=== PATIENT | male | born 1950 | race Caucasian/White ===

== ENCOUNTER 2018-07-24 18:13 | Inpatient (IN) | payer BC, MEDICARE ==
[2018-07-24] MEDS ORDERED: MORPHINE SULFATE 4 MG/ML SYRINGE IV STA (19:14)
[2018-07-24] MEDS ORDERED: SODIUM CHLORIDE 0.9% 1,000 ML IV STA ×2 (19:14→20:59)
[2018-07-24] MEDS ORDERED: ONDANSETRON 4 MG/2 ML VIAL IVP STA (19:14)
--- NOTE | 2018-07-24 19:23 | ED ---
Abdominal Pain HPI - General Source: patient Mode of arrival: ambulatory Limitations: no limitations <Danii Rivera - Last Filed: 07/24/18 22:34> <Cheryl Mike - Last Filed: 07/25/18 00:13> - General Chief Complaint: Abdominal Pain Stated Complaint: pain upper abd Time Seen by Provider: 07/24/18 18:48 - History of Present Illness Initial Comments: 67-year-old male patient presents to the emergency department today for evaluation of upper abdominal pain and vomiting. Patient states he has had symptoms since this morning. Patient states that he has had decreased appetite over the last month and a half and has lost 45 pounds without trying. Patient states that he has vomited 2-3 times prior to coming in. Patient states upon arrival he did have an episode of diarrhea. Denies any hematochezia or melena. Denies any hematemesis. Patient states he has had heart problems in the past including "4 heart attacks" but denies having any stents. Patient denies any fever or chills with this. Denies any recent travel or sick contacts. Patient denies any recent rash, shortness breath, chest pain, back pain, numbness, tingling, dizziness, weakness, hematuria, dysuria, urinary urgency, urinary frequency, headache, visual changes, or any other complaints. (Danii Rivera) - Related Data Home Medications Medication Instructions Recorded Confirmed Escitalopram [Lexapro] 20 mg PO DAILY 07/24/18 07/24/18 Allergies Allergy/AdvReac Type Severity Reaction Status Date / Time No Known Allergies Allergy Verified 07/24/18 22:44 Review of Systems ROS Other: All systems not noted in ROS Statement are negative. <Danii Rivera - Last Filed: 07/24/18 22:34> ROS Other: All systems not noted in ROS Statement are negative. <Cheryl Mike - Last Filed: 07/25/18 00:13> ROS Statement: Those systems with pertinent positive or pertinent negative responses have been documented in the HPI. 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 Vital signs upon presentation are temperature 98.0F, pulse 77, respirations 18, blood pressure 120/71, pulse ox 99% on room air.) Eye exam: Present: normal appearance, PERRL, EOMI. Absent: scleral icterus, conjunctival injection, periorbital swelling ENT exam: Present: normal exam, normal oropharynx, mucous membranes moist Respiratory exam: Present: normal lung sounds bilaterally. Absent: respiratory distress, wheezes, rales, rhonchi, stridor Cardiovascular Exam: Present: regular rate, normal rhythm, normal heart sounds. Absent: systolic murmur, diastolic murmur, rubs, gallop, clicks GI/Abdominal exam: Present: soft, tenderness (Upper abdominal tenderness), normal bowel sounds. Absent: distended, guarding, rebound, rigid Neurological exam: Present: alert, oriented X3, CN II-XII intact Psychiatric exam: Present: normal affect, normal mood Skin exam: Present: warm, dry, intact, normal color. Absent: rash <Danii Rivera - Last Filed: 07/24/18 22:34> Vital Signs 07/24/18 07/24/18 07/25/18 18:28 21:12 00:01 Temperature 98 F 98 F Pulse Rate 77 75 Pulse Rate [ 71 Left] Respiratory 18 18 Rate Blood Pressure 120/71 168/86 Blood Pressure 176/85 [Left Arm] O2 Sat by Pulse 99 97 97 Oximetry Medical Decision Making - Lab Data Result diagrams: 07/24/18 19:36 07/24/18 19:36 - Radiology Data Radiology results: report reviewed, image reviewed <Danii Rivera - Last Filed: 07/24/18 22:34> - Lab Data Result diagrams: 07/24/18 19:36 07/24/18 19:36 <Cheryl Mike - Last Filed: 07/25/18 00:13> - Medical Decision Making 67-year-old male patient presented to the emergency department today for evaluation of severe upper abdominal pain radiated through to his back. Patient also complained of nausea and vomiting. He has had a 45 pound weight loss over the last month and a half without trying. Physical examination did reveal upper abdominal tenderness. Labs are obtained and did reveal elevated lipase of greater than 20,000, elevated amylase at 1112, patient also had elevated liver enzymes with AST of 690 and a LT at 226. Bilirubin was normal. Lactic acid was elevated at 2.4. The patient also had evidence of acute kidney injury with a BUN of 32 and creatinine of 1.37. INR is 1.2 at this time. Patient symptoms and lab findings are consistent with acute pancreatitis, did perform ultrasound of the right upper quadrant abdomen did show hepatomegaly as well as presence of gallstones. Patient will be admitted to the hospital for further evaluation by gastroenterology. Patient does not have a primary care physician so we will admit to Dr. Coulter who is taking city call today. (Danii Rivera) I was available for consultation in the emergency department. The history and physical exam were done by the midlevel provider. I was consulted for this patient's care. I reviewed the case with the midlevel provider and based on their presentation of the patient, I agree with the assessment, medical decision making and plan of care as documented. (Cheryl Mike) - Lab Data Lab Results 07/24/18 07/24/18 07/24/18 Range/Units 19:36 19:36 19:36 WBC 8.8 (3.8-10.6) k/uL RBC 3.38 L (4.30-5.90) m/uL Hgb 12.2 L (13.0-17.5) gm/dL Hct 37.1 L (39.0-53.0) % MCV 109.9 H (80.0-100.0) fL MCH 36.1 H (25.0-35.0) pg MCHC 32.9 (31.0-37.0) g/dL RDW 15.8 H (11.5-15.5) % Plt Count 216 (150-450) k/uL Neutrophils % 84 % Lymphocytes % 11 % Monocytes % 4 % Eosinophils % 0 % Basophils % 0 % Neutrophils # 7.4 (1.3-7.7) k/uL Lymphocytes # 0.9 L (1.0-4.8) k/uL Monocytes # 0.3 (0-1.0) k/uL Eosinophils # 0.0 (0-0.7) k/uL Basophils # 0.0 (0-0.2) k/uL Macrocytosis Marked PT (9.0-12.0) sec INR (<1.2) APTT (22.0-30.0) sec Sodium 133 L (137-145) mmol/L Potassium 5.0 (3.5-5.1) mmol/L Chloride 99 (98-107) mmol/L Carbon Dioxide 19 L (22-30) mmol/L Anion Gap 15 mmol/L BUN 32 H (9-20) mg/dL Creatinine 1.37 H (0.66-1.25) mg/dL Est GFR (CKD-EPI)AfAm 62 (>60 ml/min/1.73 sqM) Est GFR (CKD-EPI)NonAf 53 (>60 ml/min/1.73 sqM) Glucose 146 H (74-99) mg/dL Lactic Ac Sepsis Rflx Plasma Lactic Acid Moses (0.7-2.0) mmol/L Calcium 9.0 (8.4-10.2) mg/dL Total Bilirubin 1.3 (0.2-1.3) mg/dL AST 690 H (17-59) U/L ALT 226 H (21-72) U/L Alkaline Phosphatase 104 (38-126) U/L Total Creatine Kinase 74 (55-170) U/L CK-MB (CK-2) 1.1 (0.0-2.4) ng/mL CK-MB (CK-2) Rel Index 1.5 Troponin I 0.019 (0.000-0.034) ng/mL Total Protein 7.8 (6.3-8.2) g/dL Albumin 4.2 (3.5-5.0) g/dL Amylase 1112 H* (30-110) U/L Lipase >10648 H (23-300) U/L Urine Color Urine Appearance (Clear) Urine pH (5.0-8.0) Ur Specific [place] (1.001-1.035) Urine Protein (Negative) Urine Glucose (UA) (Negative) Urine Ketones (Negative) Urine Blood (Negative) Urine Nitrite (Negative) Urine Bilirubin (Negative) Urine Urobilinogen (<2.0) mg/dL Ur Leukocyte Esterase (Negative) 07/24/18 07/24/18 07/24/18 Range/Units 19:36 19:36 20:18 WBC (3.8-10.6) k/uL RBC (4.30-5.90) m/uL Hgb (13.0-17.5) gm/dL Hct (39.0-53.0) % MCV (80.0-100.0) fL MCH (25.0-35.0) pg MCHC (31.0-37.0) g/dL RDW (11.5-15.5) % Plt Count (150-450) k/uL Neutrophils % % Lymphocytes % % Monocytes % % Eosinophils % % Basophils % % Neutrophils # (1.3-7.7) k/uL Lymphocytes # (1.0-4.8) k/uL Monocytes # (0-1.0) k/uL Eosinophils # (0-0.7) k/uL Basophils # (0-0.2) k/uL Macrocytosis PT 11.7 (9.0-12.0) sec INR 1.2 H (<1.2) APTT 22.7 (22.0-30.0) sec Sodium (137-145) mmol/L Potassium (3.5-5.1) mmol/L Chloride (98-107) mmol/L Carbon Dioxide (22-30) mmol/L Anion Gap mmol/L BUN (9-20) mg/dL Creatinine (0.66-1.25) mg/dL Est GFR (CKD-EPI)AfAm (>60 ml/min/1.73 sqM) Est GFR (CKD-EPI)NonAf (>60 ml/min/1.73 sqM) Glucose (74-99) mg/dL Lactic Ac Sepsis Rflx Plasma Lactic Acid Moses 2.4 H* (0.7-2.0) mmol/L Calcium (8.4-10.2) mg/dL Total Bilirubin (0.2-1.3) mg/dL AST (17-59) U/L ALT (21-72) U/L Alkaline Phosphatase (38-126) U/L Total Creatine Kinase (55-170) U/L CK-MB (CK-2) (0.0-2.4) ng/mL CK-MB (CK-2) Rel Index Troponin I (0.000-0.034) ng/mL Total Protein (6.3-8.2) g/dL Albumin (3.5-5.0) g/dL Amylase (30-110) U/L Lipase (23-300) U/L Urine Color Yellow Urine Appearance Clear (Clear) Urine pH 5.5 (5.0-8.0) Ur Specific [place] 1.016 (1.001-1.035) Urine Protein Trace H (Negative) Urine Glucose (UA) Negative (Negative) Urine Ketones Negative (Negative) Urine Blood Negative (Negative) Urine Nitrite Negative (Negative) Urine Bilirubin Negative (Negative) Urine Urobilinogen <2.0 (<2.0) mg/dL Ur Leukocyte Esterase Negative (Negative) 07/24/18 Range/Units 20:43 WBC (3.8-10.6) k/uL RBC (4.30-5.90) m/uL Hgb (13.0-17.5) gm/dL Hct (39.0-53.0) % MCV (80.0-100.0) fL MCH (25.0-35.0) pg MCHC (31.0-37.0) g/dL RDW (11.5-15.5) % Plt Count (150-450) k/uL Neutrophils % % Lymphocytes % % Monocytes % % Eosinophils % % Basophils % % Neutrophils # (1.3-7.7) k/uL Lymphocytes # (1.0-4.8) k/uL Monocytes # (0-1.0) k/uL Eosinophils # (0-0.7) k/uL Basophils # (0-0.2) k/uL Macrocytosis PT (9.0-12.0) sec INR (<1.2) APTT (22.0-30.0) sec Sodium (137-145) mmol/L Potassium (3.5-5.1) mmol/L Chloride (98-107) mmol/L Carbon Dioxide (22-30) mmol/L Anion Gap mmol/L BUN (9-20) mg/dL Creatinine (0.66-1.25) mg/dL Est GFR (CKD-EPI)AfAm (>60 ml/min/1.73 sqM) Est GFR (CKD-EPI)NonAf (>60 ml/min/1.73 sqM) Glucose (74-99) mg/dL Lactic Ac Sepsis Rflx Y Plasma Lactic Acid Moses (0.7-2.0) mmol/L Calcium (8.4-10.2) mg/dL Total Bilirubin (0.2-1.3) mg/dL AST (17-59) U/L ALT (21-72) U/L Alkaline Phosphatase (38-126) U/L Total Creatine Kinase (55-170) U/L CK-MB (CK-2) (0.0-2.4) ng/mL CK-MB (CK-2) Rel Index Troponin I (0.000-0.034) ng/mL Total Protein (6.3-8.2) g/dL Albumin (3.5-5.0) g/dL Amylase (30-110) U/L Lipase (23-300) U/L Urine Color Urine Appearance (Clear) Urine pH (5.0-8.0) Ur Specific [place] (1.001-1.035) Urine Protein (Negative) Urine Glucose (UA) (Negative) Urine Ketones (Negative) Urine Blood (Negative) Urine Nitrite (Negative) Urine Bilirubin (Negative) Urine Urobilinogen (<2.0) mg/dL Ur Leukocyte Esterase (Negative) - Radiology Data 2 views of the abdomen are obtained. Report was reviewed in its entirety. There is no pneumoperitoneum. Bowel gas pattern is normal. His noted the stomach is predominantly fluid-filled. No definite acute skeletal soft tissue findings. Impression by Dr. Ranjana Thomas shows negative exam. Ultrasound of the abdomen is obtained. Report is reviewed in its entirety. Impression by Dr. Miller shows gallstones. No dilated ducts. No renal mass or obstruction. Hepatomegaly. (Danii Rivera) Disposition Decision to Admit Reason: Admit from EC Decision Date: 07/24/18 Decision Time: 22:38 <Danii Rivera - Last Filed: 07/24/18 22:34> <Cheryl Mike - Last Filed: 07/25/18 00:13> Clinical Impression: Acute pancreatitis, Transaminitis, Cholelithiasis, Acute kidney injury Disposition: ADMITTED IP TO THIS [facility] Condition: Serious Addendum entered and electronically signed by Danii Rivera, [employer]-BC, AGACNP -BC 07/24/18 23:15: EKG documentation: EKG obtained at 1936 shows normal sinus rhythm with left axis deviation and left bundle branch block. Ventricular rate is 67, OK interval 152, QRS duration 140, QTC 478, QTC 505.
[2018-07-24 20:14] LABS: Appearance,Urine Clear (Clear); Bilirubin,Urine Negative (Negative); Blood,Urine Negative (Negative); Color,Urine Yellow; Glucose,Urine (UA) Negative (Negative); Ketones,Urine Negative (Negative); Leukocyte Esterase,Urine Negative (Negative); Nitrite,Urine Negative (Negative); PH, Urine 5.5 (5.0-8.0); Protein,Urine Trace (Negative); Specific Gravity,Urine 1.016 (1.001-1.035); Urobilinogen,Urine <2.0 mg/dL (<2.0)
[2018-07-24 20:16] LABS: Basophils % (A) 0 %; Eosinophils % (A) 0 %; HCT 37.1 % (39.0-53.0); HGB 12.2 gm/dL (13.0-17.5); Lymphocytes # (A) 0.9 k/uL (1.0-4.8); Lymphocytes % (A) 11 %; MCH 36.1 pg (25.0-35.0); MCHC 32.9 g/dL (31.0-37.0); MCV 109.9 fL (80.0-100.0); Macrocytosis Marked; Mean Platelet Volume 8.1; Monocytes # (A) 0.3 k/uL (0-1.0); Monocytes % (A) 4 %; Neutrophils # (A) 7.4 k/uL (1.3-7.7); Neutrophils % (A) 84 %; Platelet Count 216 k/uL (150-450); RBC 3.38 m/uL (4.30-5.90); RDW 15.8 % (11.5-15.5); WBC 8.8 k/uL (3.8-10.6)
[2018-07-24 20:17] LABS: ALT 226 U/L (21-72); AST 690 U/L (17-59); Albumin 4.2 g/dL (3.5-5.0); Alkaline Phosphatase 104 U/L (38-126); Anion Gap 15 mmol/L; Blood Urea Nitrogen 32 mg/dL (9-20); Carbon Dioxide 19 mmol/L (22-30); Chloride 99 mmol/L (98-107); Glucose 146 mg/dL (74-99); Sodium 133 mmol/L (137-145); Total Bilirubin 1.3 mg/dL (0.2-1.3); Total Protein 7.8 g/dL (6.3-8.2)
--- NOTE | 2018-07-24 20:19 | XR ---
EXAMINATION TYPE: XR KUB 2V DATE OF EXAM: 07/24/2018 COMPARISON: NONE HISTORY: Abdominal pain and vomiting TECHNIQUE: 2 upright views FINDINGS: Visualized lung bases and pleural spaces are negative. No pneumoperitoneum. The bowel gas pattern is normal. It is noted that the stomach is predominantly f luid filled. No definite acute skeletal or soft tissue findings. IMPRESSION: Negative examination.
[2018-07-24 20:33] LABS: Creatine Kinase MB 1.1 ng/mL (0.0-2.4); Troponin I 0.019 ng/mL (0.000-0.034)
[2018-07-24 20:38] LABS: INR 1.2 (<1.2); Partial Thromboplastin Time 22.7 sec (22.0-30.0); Prothrombin Time 11.7 sec (9.0-12.0)
[2018-07-24 20:42] LABS: Amylase 1112 U/L (30-110)
[2018-07-24] MEDS ORDERED: HYDROmorphone 1 MG/ML 1 ML SYRINGE IVP STA (20:59)
[2018-07-24 21:35] LABS: Lipase >20000 U/L (23-300)
[2018-07-24] MEDS ORDERED: diphenhydrAMINE 50 MG/ML 1 ML VIAL IVP STA (22:11)
[2018-07-24] MEDS ORDERED: METOCLOPRAMIDE 5 MG/ML 2 ML VIAL IVP STA (22:11)
--- NOTE | 2018-07-24 22:32 | US ---
EXAMINATION TYPE: US abdomen limited DATE OF EXAM: 07/24/2018 COMPARISON: NONE CLINICAL HISTORY: Pain. Pain and vomiting. EXAM MEASUREMENTS: Liver Length: 22.7 cm Gallbladder Wall: 0.3 cm CBD: 0.6 cm Right Kidney: 9.1 x 4.9 x 4.9 cm Pancreas: echogenic tail obscured by bowel gas. Liver: Increased attenuation hepatomegaly. Gallbladder: Hydropic 13.3cm with echogenic foci seen posterior wall with shadowing non mobile. Evidence for sonographic Massey's sign: No CBD: wnl Right Kidney: Cortical thinning. IMPRESSION: There are gallstones. No dilated ducts. No renal mass or obstruction. Hepatomegaly.
[2018-07-24] MEDS ORDERED: NALOXONE 0.4 MG/ML 1 ML VIAL IV PRN (22:38)
[2018-07-24] MEDS: SODIUM CHLORIDE 0.9% 1,000 ML IV SCH (23:07)
[2018-07-24] MEDS: HYDROmorphone 1 MG/ML 1 ML SYRINGE IVP PRN (23:46)
[2018-07-24] MEDS: ONDANSETRON 4 MG/2 ML VIAL IVP PRN (23:47)
[2018-07-25] MEDS: HYDROmorphone 1 MG/ML 1 ML SYRINGE IVP PRN ×7 (03:44→23:56)
[2018-07-25] MEDS: SODIUM CHLORIDE 0.9% 1,000 ML IV SCH ×2 (05:56→15:12)
[2018-07-25 08:30] LABS: Albumin 3.1 g/dL (3.5-5.0); Calcium 7.1 mg/dL (8.4-10.2); Total Bilirubin 0.8 mg/dL (0.2-1.3); Total Protein 6.1 g/dL (6.3-8.2)
[2018-07-25 08:31] LABS: Anisocytosis Slight; Basophils % (A) 0 %; Eosinophils # (A) 0.1 k/uL (0-0.7); Eosinophils % (A) 1 %; HCT 36.4 % (39.0-53.0); HGB 11.6 gm/dL (13.0-17.5); Lymphocytes # (A) 1.3 k/uL (1.0-4.8); Lymphocytes % (A) 18 %; MCH 36.3 pg (25.0-35.0); MCHC 31.8 g/dL (31.0-37.0); MCV 114.3 fL (80.0-100.0); Macrocytosis Marked; Mean Platelet Volume 7.3; Monocytes # (A) 0.2 k/uL (0-1.0); Monocytes % (A) 3 %; Neutrophils # (A) 5.8 k/uL (1.3-7.7); Neutrophils % (A) 77 %; Platelet Count 196 k/uL (150-450); RBC 3.19 m/uL (4.30-5.90); WBC 7.5 k/uL (3.8-10.6)
[2018-07-25] MEDS ORDERED: NITROGLYCERIN SL TABS 0.4 MG TAB SUBLINGUAL PRN (09:38)
--- NOTE | 2018-07-25 10:53 | P.HPIM ---
History of Present Illness 67-year-old gentleman came in with complaints of severe epigastric abdominal pain radiating to both sides of the abdomen to the back 10/10 in severity now 8/ 10 in severity along with nausea vomiting going on about for 2-3 days. Patient has not been eating since the Monday as she was nauseous since then. Denied any diarrhea. Patient is found to have highly elevated lipase and pancreatitis patient is also found to have gallstones patient does drink about 2 alcoholic drinks a day on most of the days. Patient denied any fever chills. Patient is nauseous today has not been vomiting. Patient lipase is greater than 20,000 yesterday and now around 8000 a some symptoms of abdominal pain and vomiting improved still nauseous as mentioned above. 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 Although patient's previous ejection fraction from 2014 is essentially within normal limits. Review of Systems REVIEW OF SYSTEMS: CONSTITUTIONAL: No fever, no malaise, no fatigue. HEENT: No recent visual problems or hearing problems. Denied any sore throat. CARDIOVASCULAR: No chest pain, orthopnea, PND, no palpitations, no syncope. PULMONARY: No shortness of breath, no cough, no hemoptysis. GASTROINTESTINAL: As mentioned in HPI NEUROLOGICAL: No headaches, no weakness, no numbness. HEMATOLOGICAL: Denies any bleeding or petechiae. GENITOURINARY: Denies any burning micturition, frequency, or urgency. MUSCULOSKELETAL/RHEUMATOLOGICAL: Denies any joint pain, swelling, or any muscle pain. ENDOCRINE: Denies any polyuria or polydipsia. The rest of the 14-point review of systems is negative. 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 History of Any Multi-Drug Resistant Organisms: None Reported Past Surgical History: Heart Catheterization Past Anesthesia/Blood Transfusion Reactions: No Reported Reaction Past Psychological History: Anxiety, Depression Smoking Status: Never smoker Past Alcohol Use History: Occasional Past Drug Use History: None Reported Medications and Allergies Home Medications Medication Instructions Recorded Confirmed Type Escitalopram [Lexapro] 20 mg PO DAILY 07/24/18 07/24/18 History Aspirin [Adult Low Dose Aspirin EC] 81 mg PO DAILY 07/25/18 07/25/18 History Carvedilol [Coreg] 12.5 mg PO BID 07/25/18 07/25/18 History Losartan [Cozaar] 100 mg PO DAILY 07/25/18 07/25/18 History Metoprolol Tartrate [Lopressor] 50 mg PO BID 07/25/18 07/25/18 History Nitroglycerin 0.4 mg SL DIRECTED PRN 07/25/18 07/25/18 History Sertraline HCl [Zoloft] 50 mg PO DAILY 07/25/18 07/25/18 History Simvastatin [Zocor] 20 mg PO HS 07/25/18 07/25/18 History Allergies Allergy/AdvReac Type Severity Reaction Status Date / Time No Known Allergies Allergy Verified 07/24/18 22:44 Physical Exam Vitals: Vital Signs Temp Pulse Pulse Resp BP BP Pulse Ox 07/25/18 05:18 97.8 F 80 18 163/85 96 07/25/18 00:11 97.4 F L 79 18 158/84 95 07/25/18 00:01 98 F 71 176/85 97 07/24/18 21:12 75 18 168/86 97 07/24/18 18:28 98 F 77 18 120/71 99 Intake and Output 07/24/18 07/25/18 07/25/18 22:59 06:59 14:59 Intake Total 1200 Balance 1200 Intake: Intake, IV Titration 1200 Amount Sodium Chloride 0.9% 1, 1200 000 ml @ 150 mls/hr IV . Q6H40M [facility] Rx#:[id number] Other: Voiding Method Toilet Toilet # Voids 1 Weight 77.564 kg PHYSICAL EXAMINATION: GENERAL: The patient is alert and oriented x3, not in any acute distress. Well developed, well nourished. HEENT: Pupils are round and equally reacting to light. EOMI. No scleral icterus. No conjunctival pallor. Normocephalic, atraumatic. No pharyngeal erythema. No thyromegaly. CARDIOVASCULAR: S1 and S2 present. No murmurs, rubs, or gallops. PULMONARY: Chest is clear to auscultation, no wheezing or crackles. ABDOMEN: Patient does have epigastric abdominal tenderness no right upper quadrant tenderness, no rebound or rigidity. MUSCULOSKELETAL: No joint swelling or deformity. EXTREMITIES: No cyanosis, clubbing, or pedal edema. NEUROLOGICAL: Gross neurological examination did not reveal any focal deficits. SKIN: No rashes. Results CBC & Chem 7: 07/25/18 07:42 07/25/18 07:42 Labs: Abnormal Lab Results - Last 24 Hours (Table) 07/24/18 07/24/18 07/24/18 Range/Units 19:36 19:36 19:36 RBC 3.38 L (4.30-5.90) m/uL Hgb 12.2 L (13.0-17.5) gm/dL Hct 37.1 L (39.0-53.0) % MCV 109.9 H (80.0-100.0) fL MCH 36.1 H (25.0-35.0) pg RDW 15.8 H (11.5-15.5) % Lymphocytes # 0.9 L (1.0-4.8) k/uL INR 1.2 H (<1.2) Sodium 133 L (137-145) mmol/L Chloride (98-107) mmol/L Carbon Dioxide 19 L (22-30) mmol/L BUN 32 H (9-20) mg/dL Creatinine 1.37 H (0.66-1.25) mg/dL Glucose 146 H (74-99) mg/dL Plasma Lactic Acid Moses (0.7-2.0) mmol/L Calcium (8.4-10.2) mg/dL AST 690 H (17-59) U/L ALT 226 H (21-72) U/L Total Protein (6.3-8.2) g/dL Albumin (3.5-5.0) g/dL Amylase 1112 H* (30-110) U/L Lipase >06232 H (23-300) U/L Urine Protein (Negative) 07/24/18 07/24/18 07/25/18 Range/Units 19:36 20:18 07:42 RBC 3.19 L (4.30-5.90) m/uL Hgb 11.6 L (13.0-17.5) gm/dL Hct 36.4 L (39.0-53.0) % MCV 114.3 H (80.0-100.0) fL MCH 36.3 H (25.0-35.0) pg RDW 16.0 H (11.5-15.5) % Lymphocytes # (1.0-4.8) k/uL INR (<1.2) Sodium (137-145) mmol/L Chloride (98-107) mmol/L Carbon Dioxide (22-30) mmol/L BUN (9-20) mg/dL Creatinine (0.66-1.25) mg/dL Glucose (74-99) mg/dL Plasma Lactic Acid Moses 2.4 H* (0.7-2.0) mmol/L Calcium (8.4-10.2) mg/dL AST (17-59) U/L ALT (21-72) U/L Total Protein (6.3-8.2) g/dL Albumin (3.5-5.0) g/dL Amylase (30-110) U/L Lipase (23-300) U/L Urine Protein Trace H (Negative) 07/25/18 Range/Units 07:42 RBC (4.30-5.90) m/uL Hgb (13.0-17.5) gm/dL Hct (39.0-53.0) % MCV (80.0-100.0) fL MCH (25.0-35.0) pg RDW (11.5-15.5) % Lymphocytes # (1.0-4.8) k/uL INR (<1.2) Sodium (137-145) mmol/L Chloride 108 H (98-107) mmol/L Carbon Dioxide 19 L (22-30) mmol/L BUN (9-20) mg/dL Creatinine (0.66-1.25) mg/dL Glucose 119 H (74-99) mg/dL Plasma Lactic Acid Moses (0.7-2.0) mmol/L Calcium 7.1 L (8.4-10.2) mg/dL AST 404 H (17-59) U/L ALT 148 H (21-72) U/L Total Protein 6.1 L (6.3-8.2) g/dL Albumin 3.1 L (3.5-5.0) g/dL Amylase (30-110) U/L Lipase 8011 H (23-300) U/L Urine Protein (Negative) Thrombosis Risk Factor Assmnt - Choose All That Apply Each Risk Factor Represents 2 Points: Age 61-74 years Thrombosis Risk Factor Assessment Total Risk Factor Score: 2 Thrombosis Risk Factor Assessment Level: Low Risk Assessment and Plan Plan: -Acute pancreatitis: Patient may have combination of both alcohol and gallstone pancreatitis patient will need a surgical evaluation. Patient will be started on IV fluids. Patient will remain nothing by mouth except for medications. -Acute renal failure: Prerenal azotemia from nausea vomiting patient is on IV fluids which will be continued and kidney function is expected to improve -Hypovolemic hyponatremia expected to improve with IV fluids as mentioned above -Alcohol abuse: Counseling was provided -Elevated MCV: Will obtain B12 levels but that secondary to alcohol abuse. -Lactic acidosis: Secondary to systemic inflammatory response from pancreatitis will not require any antibiotics at this time -History of viral cardiomyopathy, resolved normal ejection fraction in 2014 beta emigdio will be continued will resume on SHIRIN inhibitor when he can tolerate oral diet -Depression- -hypertension
--- NOTE | 2018-07-25 13:25 | P.CONS ---
History of Present Illness - Reason for Consult Consult date: 07/25/18 pancreatitis Requesting physician: Dru Coulter - Chief Complaint abdominal pain - History of Present Illness 67-year-old male admitted with acute midepigastric upper abdominal pain with nausea vomiting. Symptoms started a few days ago but intensified yesterday. He noticed his urine to be slightly darker in nature. Bowel movements appear to be darker in color. He thinks he's had similar attacks in the past but not hospitalized. He does drink wine sometimes daily sometimes 2-3 times a week. Denies fever or chills. Unintentional weight loss more than 40 pounds over the last few months a decreased appetite. Admission hemoglobin 12.2. MCV 109. Platelet 216. White count 8.8. INR 1.2. Total bilirubin 1.3. AST 690. ALT 226. AP 104. Lipase greater than 20,000. Amylase 1112. Today lipase is 8011. Total bilirubin 0.8. AST 404. ALT 148. AP 71. Ultrasound abdomen gallstones no dilated ducts. CBD 0.6 cm. Hepatomegaly liver line 22.7 cm. Review of Systems Constitutional: Denies fever, chills, sweats, weight gain, or loss. HEENT: Negative for migraines, blurred vision or loss, earaches, drainage, tinnitus, oral mucosal lesions, dysphagia, or odynophagia. Cardiac: Negative for chest pain, arrhythmias, or palpitation. Respiratory: Negative for shortness of breath, hemoptysis, cough, or sputum production. Gastrointestinal: See HPI for pertinent findings. Genitourinary: Negative for hematuria, urgency, frequency, polyuria, dysuria, or penile discharge. Musculoskeletal: Negative for muscle aches, swelling, arthritis, and arthralgias. Neurologic: Negative for stroke or TIA. Endocrine: Negative for thyroid problems. Skin: Negative for rash or itching. Psychiatric: Negative history for depression and anxiety 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 History of Any Multi-Drug Resistant Organisms: None Reported Past Surgical History: Heart Catheterization Past Anesthesia/Blood Transfusion Reactions: No Reported Reaction Past Psychological History: Anxiety, Depression Smoking Status: Never smoker Past Alcohol Use History: Occasional Past Drug Use History: None Reported Medications and Allergies Home Medications Medication Instructions Recorded Confirmed Type Escitalopram [Lexapro] 20 mg PO DAILY 07/24/18 07/25/18 History Aspirin [Adult Low Dose Aspirin EC] 81 mg PO DAILY 07/25/18 07/25/18 History Carvedilol [Coreg] 12.5 mg PO BID 07/25/18 07/25/18 History Losartan Potassium 100 mg PO DAILY 07/25/18 07/25/18 History Metoprolol Tartrate [Lopressor] 50 mg PO DIRECTED 07/25/18 History Nitroglycerin 0.4 mg SL Q5M PRN 07/25/18 07/25/18 History Simvastatin [Zocor] 20 mg PO HS 07/25/18 07/25/18 History Allergies Allergy/AdvReac Type Severity Reaction Status Date / Time No Known Allergies Allergy Verified 07/24/18 22:44 Physical Exam Vitals: Vital Signs Temp Pulse Pulse Resp BP BP Pulse Ox 07/25/18 12:26 97.1 F L 93 16 133/81 93 L 07/25/18 05:18 97.8 F 80 18 163/85 96 07/25/18 00:11 97.4 F L 79 18 158/84 95 07/25/18 00:01 98 F 71 176/85 97 07/24/18 21:12 75 18 168/86 97 07/24/18 18:28 98 F 77 18 120/71 99 Intake and Output 07/24/18 07/25/18 07/25/18 22:59 06:59 14:59 Intake Total 1200 Balance 1200 Intake: Intake, IV Titration 1200 Amount Sodium Chloride 0.9% 1, 1200 000 ml @ 150 mls/hr IV . Q6H40M [facility] Rx#:[id number] Other: Voiding Method Toilet Toilet # Voids 1 Weight 77.564 kg General appearance: The patient is alert, oriented, in no acute distress. HET: Head is normocephalic and atraumatic. Pupils are equal and reactive. Oropharynx is clear without lesions. Neck: Supple without lymphadenopathy. Trachea midline. Heart: S1 S2. Regular rate and rhythm. Lungs: No crackles or wheezes are heard. Abdomen: Soft, moderate tenderness midepigastrium, nondistended with bowel sounds. No peritoneal signs. No palpable organomegaly or masses. Extremities: Normal skin color and turgor. No cyanosis, rash, ulceration, clubbing, or edema. Radial and pedal pulses are 2/4 bilaterally. Neurological: No focal deficits. Strength and sensation are grossly intact. Results CBC & Chem 7: 07/26/18 07:44 07/26/18 07:44 Labs: Abnormal Lab Results - Last 24 Hours (Table) 07/24/18 07/24/18 07/24/18 Range/Units 19:36 19:36 19:36 RBC 3.38 L (4.30-5.90) m/uL Hgb 12.2 L (13.0-17.5) gm/dL Hct 37.1 L (39.0-53.0) % MCV 109.9 H (80.0-100.0) fL MCH 36.1 H (25.0-35.0) pg RDW 15.8 H (11.5-15.5) % Lymphocytes # 0.9 L (1.0-4.8) k/uL INR 1.2 H (<1.2) Sodium 133 L (137-145) mmol/L Chloride (98-107) mmol/L Carbon Dioxide 19 L (22-30) mmol/L BUN 32 H (9-20) mg/dL Creatinine 1.37 H (0.66-1.25) mg/dL Glucose 146 H (74-99) mg/dL Plasma Lactic Acid Moses (0.7-2.0) mmol/L Calcium (8.4-10.2) mg/dL AST 690 H (17-59) U/L ALT 226 H (21-72) U/L Total Protein (6.3-8.2) g/dL Albumin (3.5-5.0) g/dL Amylase 1112 H* (30-110) U/L Lipase >10337 H (23-300) U/L Urine Protein (Negative) 07/24/18 07/24/18 07/25/18 Range/Units 19:36 20:18 07:42 RBC 3.19 L (4.30-5.90) m/uL Hgb 11.6 L (13.0-17.5) gm/dL Hct 36.4 L (39.0-53.0) % MCV 114.3 H (80.0-100.0) fL MCH 36.3 H (25.0-35.0) pg RDW 16.0 H (11.5-15.5) % Lymphocytes # (1.0-4.8) k/uL INR (<1.2) Sodium (137-145) mmol/L Chloride (98-107) mmol/L Carbon Dioxide (22-30) mmol/L BUN (9-20) mg/dL Creatinine (0.66-1.25) mg/dL Glucose (74-99) mg/dL Plasma Lactic Acid Moses 2.4 H* (0.7-2.0) mmol/L Calcium (8.4-10.2) mg/dL AST (17-59) U/L ALT (21-72) U/L Total Protein (6.3-8.2) g/dL Albumin (3.5-5.0) g/dL Amylase (30-110) U/L Lipase (23-300) U/L Urine Protein Trace H (Negative) 07/25/18 Range/Units 07:42 RBC (4.30-5.90) m/uL Hgb (13.0-17.5) gm/dL Hct (39.0-53.0) % MCV (80.0-100.0) fL MCH (25.0-35.0) pg RDW (11.5-15.5) % Lymphocytes # (1.0-4.8) k/uL INR (<1.2) Sodium (137-145) mmol/L Chloride 108 H (98-107) mmol/L Carbon Dioxide 19 L (22-30) mmol/L BUN (9-20) mg/dL Creatinine (0.66-1.25) mg/dL Glucose 119 H (74-99) mg/dL Plasma Lactic Acid Moses (0.7-2.0) mmol/L Calcium 7.1 L (8.4-10.2) mg/dL AST 404 H (17-59) U/L ALT 148 H (21-72) U/L Total Protein 6.1 L (6.3-8.2) g/dL Albumin 3.1 L (3.5-5.0) g/dL Amylase (30-110) U/L Lipase 8011 H (23-300) U/L Urine Protein (Negative) US - abdomen: report reviewed (Dr. Peña) Assessment and Plan (1) Acute pancreatitis Narrative/Plan: 67-year-old male admitted with acute upper abdominal pain elevated amylase lipase consistent with acute pancreatitis with transaminitis cholelithiasis per abdominal imaging suggestive of acute biliary pancreatitis. Underlying alcohol hepatitis pancreatitis cannot be entirely excluded. Transaminases improving. Current Visit: Yes Status: Acute Code(s): K85.90 - ACUTE PANCREATITIS WITHOUT NECROSIS OR INFECTION, UNSP SNOMED Code(s): 828683331 (2) Macrocytosis Current Visit: Yes Status: Acute Code(s): D75.89 - OTHER SPECIFIED DISEASES OF BLOOD AND BLOOD-FORMING ORGANS SNOMED Code(s): 803334055 (3) Cholelithiasis Current Visit: Yes Status: Acute Code(s): K80.20 - CALCULUS OF GALLBLADDER W /O CHOLECYSTITIS W/O OBSTRUCTION SNOMED Code(s): 165529977 (4) Transaminitis Current Visit: Yes Status: Acute Code(s): R74.0 - NONSPEC ELEV OF LEVELS OF TRANSAMNS & LACTIC ACID DEHYDRGNSE SNOMED Code(s): 150403070 Plan: 1. No clinical evidence at this time to suggest choledocholithiasis therefore ERCP is not indicated at this time. 2. General surgical consult. Keep nothing by mouth. CMP amylase lipase CBC in a.m. Thank you for this kind referral and the opportunity to participate in the care of your patient. This consultation was discussed with Dr. Peña. The impression and plan of care have been directed as dictated.
--- NOTE | 2018-07-25 15:07 | P.GSCN ---
History of Present Illness Consult date: 07/25/18 Reason for Consult: Right upper abdominal pain History of present illness: 67 year old male present to the emergency room with a chief complaint of developing upper abdominal pain right upper quadrant with a nausea sensation poor appetite. Patient stated over the last several months he has lost 45 pounds unintentionally states that he did stop drinking beer and soda pop. Patient states that his last alcohol drink was on Monday a glass and a half of wine patient stated that the pain was unbearable that he vomited several times before coming into the emergency room there was no blood in the emesis in the emergency room lab findings were consistent for acute pancreatitis. Ultrasound of the right upper quadrant of the abdomen showed hepatomegaly with present of gallstones. Patient was admitted to the attending. Surgical consultation requested. denies any prior episodes of pain in the abdomen when questioning Did note GI service indicate no clinical evidence to suggest cholelithiasis no ERCP indicated at this time. Recommending repeating labs in the morning. Lipase on admission was elevated to 8000. AST 404 ALT 148 Past surgical history heart catheterization with no stent, past medical history anxiety depressive disorder hyperlipidemia hypertension Alcohol patient states occasionally Review of Systems Essentially unremarkable except as mentioned in present illness 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 History of Any Multi-Drug Resistant Organisms: None Reported Past Surgical History: Heart Catheterization Past Anesthesia/Blood Transfusion Reactions: No Reported Reaction Past Psychological History: Anxiety, Depression Smoking Status: Never smoker Past Alcohol Use History: Occasional Past Drug Use History: None Reported Medications and Allergies Home Medications Medication Instructions Recorded Confirmed Type Escitalopram [Lexapro] 20 mg PO DAILY 07/24/18 07/25/18 History Aspirin [Adult Low Dose Aspirin EC] 81 mg PO DAILY 07/25/18 07/25/18 History Carvedilol [Coreg] 12.5 mg PO BID 07/25/18 07/25/18 History Losartan Potassium 100 mg PO DAILY 07/25/18 07/25/18 History Metoprolol Tartrate [Lopressor] 50 mg PO DIRECTED 07/25/18 History Nitroglycerin 0.4 mg SL Q5M PRN 07/25/18 07/25/18 History Simvastatin [Zocor] 20 mg PO HS 07/25/18 07/25/18 History Allergies Allergy/AdvReac Type Severity Reaction Status Date / Time No Known Allergies Allergy Verified 07/24/18 22:44 Surgical - Exam Vital Signs Temp Pulse Resp BP Pulse Ox 98 F 77 18 120/71 99 07/24/18 18:28 07/24/18 18:28 07/24/18 18:28 07/24/18 18:28 07/24/18 18:28 GENERAL APPEARANCE: 67-year-old male patient is alert, oriented, in no acute distress. VITAL SIGNS: Reviewed HEENT: Head is normocephalic and atraumatic. Pupils are equal and reactive. The nares are patent. Oropharynx is clear without lesions. NECK: Supple without lymphadenopathy. Traches midline. HEART: S1, S2. Regular rate and rhythm. Denying chest pain no murmur LUNGS: No crackles or wheezes are heard. On room air no shortness of breath ABDOMEN: Soft, moderate tenderness midepigastric area nondistended with good bowel sounds. No peritoneal signs. No palpable organomegaly or masses. Reports no nausea no vomiting EXTREMITIES: Normal skin color and turgor. No cyanosis, rash, ulceration, clubbing or edema. Radial pedal pulses are 2/4 bilaterally. NEUROLOGICAL: No focal deficits. Strength and sensation are grossly intact. Results - Labs 07/25/18 07:42 07/25/18 07:42 Abnormal Lab Results - Last 24 Hours (Table) 07/24/18 07/24/18 07/24/18 Range/Units 19:36 19:36 19:36 RBC 3.38 L (4.30-5.90) m/uL Hgb 12.2 L (13.0-17.5) gm/dL Hct 37.1 L (39.0-53.0) % MCV 109.9 H (80.0-100.0) fL MCH 36.1 H (25.0-35.0) pg RDW 15.8 H (11.5-15.5) % Lymphocytes # 0.9 L (1.0-4.8) k/uL INR 1.2 H (<1.2) Sodium 133 L (137-145) mmol/L Chloride (98-107) mmol/L Carbon Dioxide 19 L (22-30) mmol/L BUN 32 H (9-20) mg/dL Creatinine 1.37 H (0.66-1.25) mg/dL Glucose 146 H (74-99) mg/dL Plasma Lactic Acid Moses (0.7-2.0) mmol/L Calcium (8.4-10.2) mg/dL AST 690 H (17-59) U/L ALT 226 H (21-72) U/L Total Protein (6.3-8.2) g/dL Albumin (3.5-5.0) g/dL Amylase 1112 H* (30-110) U/L Lipase >36647 H (23-300) U/L Urine Protein (Negative) 07/24/18 07/24/18 07/25/18 Range/Units 19:36 20:18 07:42 RBC 3.19 L (4.30-5.90) m/uL Hgb 11.6 L (13.0-17.5) gm/dL Hct 36.4 L (39.0-53.0) % MCV 114.3 H (80.0-100.0) fL MCH 36.3 H (25.0-35.0) pg RDW 16.0 H (11.5-15.5) % Lymphocytes # (1.0-4.8) k/uL INR (<1.2) Sodium (137-145) mmol/L Chloride (98-107) mmol/L Carbon Dioxide (22-30) mmol/L BUN (9-20) mg/dL Creatinine (0.66-1.25) mg/dL Glucose (74-99) mg/dL Plasma Lactic Acid Moses 2.4 H* (0.7-2.0) mmol/L Calcium (8.4-10.2) mg/dL AST (17-59) U/L ALT (21-72) U/L Total Protein (6.3-8.2) g/dL Albumin (3.5-5.0) g/dL Amylase (30-110) U/L Lipase (23-300) U/L Urine Protein Trace H (Negative) 07/25/18 Range/Units 07:42 RBC (4.30-5.90) m/uL Hgb (13.0-17.5) gm/dL Hct (39.0-53.0) % MCV (80.0-100.0) fL MCH (25.0-35.0) pg RDW (11.5-15.5) % Lymphocytes # (1.0-4.8) k/uL INR (<1.2) Sodium (137-145) mmol/L Chloride 108 H (98-107) mmol/L Carbon Dioxide 19 L (22-30) mmol/L BUN (9-20) mg/dL Creatinine (0.66-1.25) mg/dL Glucose 119 H (74-99) mg/dL Plasma Lactic Acid Moses (0.7-2.0) mmol/L Calcium 7.1 L (8.4-10.2) mg/dL AST 404 H (17-59) U/L ALT 148 H (21-72) U/L Total Protein 6.1 L (6.3-8.2) g/dL Albumin 3.1 L (3.5-5.0) g/dL Amylase (30-110) U/L Lipase 8011 H (23-300) U/L Urine Protein (Negative) Diabetes panel 07/24/18 07/25/18 Range/Units 19:36 07:42 Sodium 133 L 138 (137-145) mmol/L Potassium 5.0 4.0 (3.5-5.1) mmol/L Chloride 99 108 H (98-107) mmol/L Carbon Dioxide 19 L 19 L (22-30) mmol/L BUN 32 H 20 (9-20) mg/dL Creatinine 1.37 H 1.04 (0.66-1.25) mg/dL Glucose 146 H 119 H (74-99) mg/dL Calcium 9.0 7.1 L (8.4-10.2) mg/dL AST 690 H 404 H (17-59) U/L ALT 226 H 148 H (21-72) U/L Alkaline Phosphatase 104 71 (38-126) U/L Total Protein 7.8 6.1 L (6.3-8.2) g/dL Albumin 4.2 3.1 L (3.5-5.0) g/dL Calcium panel 07/24/18 07/25/18 Range/Units 19:36 07:42 Calcium 9.0 7.1 L (8.4-10.2) mg/dL Albumin 4.2 3.1 L (3.5-5.0) g/dL Pituitary panel 07/24/18 07/25/18 Range/Units 19:36 07:42 Sodium 133 L 138 (137-145) mmol/L Potassium 5.0 4.0 (3.5-5.1) mmol/L Chloride 99 108 H (98-107) mmol/L Carbon Dioxide 19 L 19 L (22-30) mmol/L BUN 32 H 20 (9-20) mg/dL Creatinine 1.37 H 1.04 (0.66-1.25) mg/dL Glucose 146 H 119 H (74-99) mg/dL Calcium 9.0 7.1 L (8.4-10.2) mg/dL Adrenal panel 07/24/18 07/25/18 Range/Units 19:36 07:42 Sodium 133 L 138 (137-145) mmol/L Potassium 5.0 4.0 (3.5-5.1) mmol/L Chloride 99 108 H (98-107) mmol/L Carbon Dioxide 19 L 19 L (22-30) mmol/L BUN 32 H 20 (9-20) mg/dL Creatinine 1.37 H 1.04 (0.66-1.25) mg/dL Glucose 146 H 119 H (74-99) mg/dL Calcium 9.0 7.1 L (8.4-10.2) mg/dL Total Bilirubin 1.3 0.8 (0.2-1.3) mg/dL AST 690 H 404 H (17-59) U/L ALT 226 H 148 H (21-72) U/L Alkaline Phosphatase 104 71 (38-126) U/L Total Protein 7.8 6.1 L (6.3-8.2) g/dL Albumin 4.2 3.1 L (3.5-5.0) g/dL Assessment and Plan Assessment: Impression Present on admission upper abdominal pain suspect due to acute pancreatitis Present on admission elevated Transaminitis Ultrasound of the abdomen show cholelithiasis Acute pancreatitis unclear etiology Abdominal imaging suggestive of acute biliary pancreatitis History of alcohol use underlying alcohol hepatitis cannot be entirely excluded macrocytosis Unintentional weight loss Plan Scheduled tomorrow for a lap cholecystectomy per Clear liquid diet nothing by mouth at midnight IV fluid for hydration Pain control Repeat labs in the morning GI recommendations reviewed no clinical evidence to suggest cholelithiasis no ERCP indicated at this time DVT and GI prophylaxis Further surgical recommendations pending will follow with you Surgical consultation note dictated for Dr. barrett The above impression and plan of care have been discussed and directed by signing physician. Nan Rashid nurse practitioner acting as scribe for signing physician.
[2018-07-25] MEDS: CARVEDILOL 12.5 MG TAB PO SCH (16:32)
[2018-07-26] MEDS: SODIUM CHLORIDE 0.9% 1,000 ML IV SCH ×2 (04:41→06:11)
[2018-07-26] MEDS: ASPIRIN 81 MG PO SCH (07:09)
[2018-07-26] MEDS: HYDROmorphone 1 MG/ML 1 ML SYRINGE IVP PRN ×2 (07:13→20:44)
[2018-07-26] MEDS: CARVEDILOL 12.5 MG TAB PO SCH ×2 (08:11→18:01)
[2018-07-26] MEDS: LOSARTAN 50 MG TAB PO SCH (08:12)
[2018-07-26] MEDS: ESCITALOPRAM 20 MG TAB PO SCH (08:13)
[2018-07-26 08:28] LABS: Anisocytosis Slight; HGB 10.1 gm/dL (13.0-17.5); MCHC 31.6 g/dL (31.0-37.0); MCV 117.2 fL (80.0-100.0); Macrocytosis Marked; Mean Platelet Volume 7.3; Platelet Count 139 k/uL (150-450); RBC 2.73 m/uL (4.30-5.90); RDW 16.2 % (11.5-15.5); WBC 9.5 k/uL (3.8-10.6)
[2018-07-26 08:41] LABS: Albumin 2.7 g/dL (3.5-5.0); Calcium 6.5 mg/dL (8.4-10.2); Potassium 4.6 mmol/L (3.5-5.1); Total Bilirubin 0.7 mg/dL (0.2-1.3); Total Protein 5.6 g/dL (6.3-8.2)
[2018-07-26] MEDS ORDERED: SERTRALINE 50 MG TAB PO SCH (09:00)
--- NOTE | 2018-07-26 10:43 | XR ---
EXAMINATION TYPE: XR chest 1V DATE OF EXAM: 07/26/2018 COMPARISON: NONE HISTORY: Shortness of breath TECHNIQUE: Single frontal view of the chest is obtained. FINDINGS: Bilateral subsegmental consolidation and small effusion. No overt failure. Atherosclerotic change aorta. IMPRESSION: Bilateral consolidation and small effusion.
--- NOTE | 2018-07-26 10:56 | P.PN ---
Subjective 67-year-old admitted the secondary to pancreatitis both alcoholic and gallstone pancreatitis and patient will undergo cholecystectomy most probably today. Patient nausea vomiting abdominal pain all improved patient saturations has gone down although clinically patient does not appear to have any CHF, will obtain a chest x-ray hold off on IV fluids for now. Constitutional: Denied any fatigue denied any fever. Cardio vascular: denied any chest pain, palpitations Gastrointestinal denied any nausea vomiting Pulmonary: Denied any shortness of breath cough Neurologic denied any new focal deficits Objective - Vital Signs Vital signs: Vital Signs Temp 98.6 F 07/26/18 05:00 Pulse 103 H 07/26/18 05:00 Resp 16 07/26/18 05:00 BP 121/62 07/26/18 05:00 Pulse Ox 91 L 07/26/18 05:00 Intake & Output 07/25/18 07/26/18 07/26/18 18:59 06:59 18:59 Intake Total 1000 0 Balance 1000 0 Intake: IV 1000 Sodium Chloride 0.9% 1, 1000 000 ml @ 125 mls/hr IV . Q8H [facility] Rx#:[id number] Oral 0 Other: Voiding Method Toilet Toilet Toilet # Voids 2 - Exam PHYSICAL EXAMINATION: GENERAL: The patient is alert and oriented x3, not in any acute distress. Well developed, well nourished. HEENT: Pupils are round and equally reacting to light. EOMI. No scleral icterus. No conjunctival pallor. Normocephalic, atraumatic. No pharyngeal erythema. No thyromegaly. CARDIOVASCULAR: S1 and S2 present. No murmurs, rubs, or gallops. PULMONARY: Chest is clear to auscultation, no wheezing or crackles. ABDOMEN: Abdomen is bit distended but no significant abdominal tenderness today. MUSCULOSKELETAL: No joint swelling or deformity. EXTREMITIES: No cyanosis, clubbing, or pedal edema. NEUROLOGICAL: Gross neurological examination did not reveal any focal deficits. SKIN: No rashes. - Labs CBC & Chem 7: 07/26/18 07:44 07/26/18 07:44 Labs: Abnormal Lab Results - Last 24 Hours (Table) 07/26/18 07/26/18 Range/Units 07:44 07:44 RBC 2.73 L (4.30-5.90) m/uL Hgb 10.1 L (13.0-17.5) gm/dL Hct 32.0 L (39.0-53.0) % MCV 117.2 H (80.0-100.0) fL MCH 37.0 H (25.0-35.0) pg RDW 16.2 H (11.5-15.5) % Plt Count 139 L (150-450) k/uL Chloride 111 H (98-107) mmol/L Creatinine 1.54 H (0.66-1.25) mg/dL Glucose 118 H (74-99) mg/dL Calcium 6.5 L (8.4-10.2) mg/dL AST 194 H (17-59) U/L ALT 99 H (21-72) U/L Total Protein 5.6 L (6.3-8.2) g/dL Albumin 2.7 L (3.5-5.0) g/dL Lipase 1826 H (23-300) U/L Assessment and Plan Plan: -Acute pancreatitis: Patient may have combination of both alcohol and gallstone pancreatitis, patient will undergo cholecystectomy today, can be resumed on diet after surgery for agreeable with surgical services -Acute renal failure: Prerenal azotemia, improved with IV fluids now bit worse we'll repeat the complex metabolic profile tomorrow. -Hypovolemic hyponatremia improved with IV fluids., Holding off on IV fluids today because of his oxygen saturation to 90% and getting a chest x-ray -Alcohol abuse: Counseling was provided -Elevated MCV: B12 levels are pending and secondary to alcohol abuse -Lactic acidosis: Secondary to systemic inflammatory response from pancreatitis will not require any antibiotics at this time except for preoperative antibiotics -History of viral cardiomyopathy, resolved normal ejection fraction in 2014 beta emigdio will be continued will resume on SHIRIN inhibitor when he can tolerate oral diet -Depression- -hypertension
--- NOTE | 2018-07-26 11:17 | P.PN ---
Subjective Progress Note Date: 07/26/18 Principal diagnosis: Acute pancreatitis 67-year-old male admitted with acute pancreatitis; lipase improved 6. Transaminases improving AST 194. ALT 99. Abdominal pain improving. Scheduled for laparoscopic cholecystectomy today. Afebrile. Objective - Vital Signs Vital signs: Vital Signs Temp 98.6 F 07/26/18 05:00 Pulse 103 H 07/26/18 05:00 Resp 16 07/26/18 05:00 BP 121/62 07/26/18 05:00 Pulse Ox 91 L 07/26/18 05:00 Intake & Output 07/25/18 07/26/18 07/26/18 18:59 06:59 18:59 Intake Total 1000 0 Balance 1000 0 Intake: IV 1000 Sodium Chloride 0.9% 1, 1000 000 ml @ 125 mls/hr IV . Q8H [facility] Rx#:[id number] Oral 0 Other: Voiding Method Toilet Toilet Toilet # Voids 2 - Exam General appearance: The patient is alert, oriented, in no acute distress. HET: Head is normocephalic and atraumatic. Pupils are equal and reactive. Oropharynx is clear without lesions. Neck: Supple without lymphadenopathy. Trachea midline. Heart: S1 S2. Regular rate and rhythm. Lungs: No crackles or wheezes are heard. Abdomen: Soft, midepigastric tenderness, nondistended with bowel sounds. No peritoneal signs. No palpable organomegaly or masses. Extremities: Normal skin color and turgor. No cyanosis, rash, ulceration, clubbing, or edema. Radial and pedal pulses are 2/4 bilaterally. Neurological: No focal deficits. Strength and sensation are grossly intact. - Labs CBC & Chem 7: 07/26/18 07:44 07/26/18 07:44 Labs: Abnormal Lab Results - Last 24 Hours (Table) 07/26/18 07/26/18 Range/Units 07:44 07:44 RBC 2.73 L (4.30-5.90) m/uL Hgb 10.1 L (13.0-17.5) gm/dL Hct 32.0 L (39.0-53.0) % MCV 117.2 H (80.0-100.0) fL MCH 37.0 H (25.0-35.0) pg RDW 16.2 H (11.5-15.5) % Plt Count 139 L (150-450) k/uL Chloride 111 H (98-107) mmol/L Creatinine 1.54 H (0.66-1.25) mg/dL Glucose 118 H (74-99) mg/dL Calcium 6.5 L (8.4-10.2) mg/dL AST 194 H (17-59) U/L ALT 99 H (21-72) U/L Total Protein 5.6 L (6.3-8.2) g/dL Albumin 2.7 L (3.5-5.0) g/dL Lipase 1826 H (23-300) U/L Assessment and Plan (1) Acute pancreatitis Narrative/Plan: 67-year-old male admitted with acute upper abdominal pain elevated amylase lipase consistent with acute pancreatitis with transaminitis cholelithiasis per abdominal imaging suggestive of acute biliary pancreatitis. Underlying alcohol hepatitis pancreatitis cannot be entirely excluded. Transaminases improving. Current Visit: Yes Status: Acute Code(s): K85.90 - ACUTE PANCREATITIS WITHOUT NECROSIS OR INFECTION, UNSP SNOMED Code(s): 338584232 (2) Macrocytosis Current Visit: Yes Status: Acute Code(s): D75.89 - OTHER SPECIFIED DISEASES OF BLOOD AND BLOOD-FORMING ORGANS SNOMED Code(s): 956621632 (3) Cholelithiasis Current Visit: Yes Status: Acute Code(s): K80.20 - CALCULUS OF GALLBLADDER W /O CHOLECYSTITIS W/O OBSTRUCTION SNOMED Code(s): 824785583 (4) Transaminitis Current Visit: Yes Status: Acute Code(s): R74.0 - NONSPEC ELEV OF LEVELS OF TRANSAMNS & LACTIC ACID DEHYDRGNSE SNOMED Code(s): 222198772 Plan: 1. Pancreatic enzymes and transverse is improving. Scheduled for or today. Continue with IV hydration supportive measures and GI prophylaxis. Assessment and plan a care discussed with Dr. Peña
[2018-07-26] MEDS ORDERED: IV FLUID CONTINUATION 1,000 ML IV ONE (12:49)
[2018-07-26] MEDS ORDERED: LIDOCAINE 1% 20 ML VIAL (10MG/ML) FOR IV START INTRADERMA ONE (12:49)
--- NOTE | 2018-07-26 13:17 | P.PN ---
Progress Note - Text Progress Note Date: 07/26/18 Patient feels better today. His liver function tests improve. On exam is lesser stable. His abdomen soft. Patient will undergo laparoscopic cholecystectomy today.
[2018-07-26] MEDS ORDERED: HEPARIN SODIUM,PORCINE 5,000 UNIT/ML 1 ML VIAL SQ ONE (13:25)
[2018-07-26] MEDS ORDERED: SODIUM CHLORIDE 0.9% 100 ML with ceFAZolin 2,000 MG IV ONE ×2 (13:47)
[2018-07-26] MEDS ORDERED: BUPIVACAINE-EPI 0.5%-1:200,000 10 ML VIAL SQ ONE (14:08)
--- NOTE | 2018-07-26 14:24 | P.OP ---
Date of Procedure: 07/26/18 Preoperative Diagnosis: Gallstone pancreatitis Postoperative Diagnosis: Gallstone pancreatitis Procedure(s) Performed: Laparoscopic cholecystectomy Anesthesia: GOMEZ Surgeon: Beck Mendoza Estimated Blood Loss (ml): 5 Pathology: other (Gallbladder) Condition: stable Disposition: PACU Description of Procedure: The patient was placed on the operating table. The patient received a general endotracheal tube anesthesia. The patients abdomen was prepped and draped in the usual sterile fashion. Through an infraumbilical stab incision, the fascia of the anterior abdominal wall was grasped with a pair of Kochers and then the Veress needle was placed in the peritoneal cavity. Position of the Veress needle was confirmed with positive drop test. The abdomen was then insufflated. After adequate insufflation, the 10 mm trocar was placed in the peritoneal cavity. Following this the laparoscope was placed in the peritoneal cavity. The patient was placed in the head-up, right side up position and then a 5 mm trocar was placed in the right lateral and right subcostal position under direct visualization. A 8 mm trocar was placed in the epigastric position. The gallbladder was grasped in the fundus and infundibulum. Traction on the gallbladder was placed in the lateral and the cephalad positions. The triangle of Calot was visualized.. The cystic duct was bluntly dissected until the union of the cystic duct and common bile duct was seen. The cystic duct was then divided and sealed with the Harmonic scissors. A PDS Endoloop was then placed throughout the cystic duct stump. The cystic artery divided and sealed with the Harmonic scissors. The gallbladder was then removed from the liver bed using Harmonic scissors. The gallbladder was then extracted through the epigastric port site. Operative field was checked for any bleeding spots and Harmonic scissors was used to coagulate the liver bed. The abdomen was irrigated. The trocars were removed. The skin was closed using interrupted 3-0 Vicryl suture. Dermabond dressing were applied. The patient tolerated the procedure well.
[2018-07-26] MEDS ORDERED: HYDROmorphone 1 MG/ML 1 ML SYRINGE IVP ONE (15:21)
[2018-07-26] MEDS: ONDANSETRON 4 MG/2 ML VIAL IVP PRN (20:43)
[2018-07-26] MEDS ORDERED: BENZOCAINE/MENTHOL LOZENG 1 EACH LOZENGE MUCOUS MEM PRN (22:13)
[2018-07-27] MEDS: HALOPERIDOL LACTATE 5 MG/ML 1 ML VIAL IM PRN (02:08)
[2018-07-27] MEDS: CARVEDILOL 12.5 MG TAB PO SCH ×2 (09:13→17:35)
[2018-07-27] MEDS: ASPIRIN 81 MG PO SCH (09:14)
[2018-07-27] MEDS: ESCITALOPRAM 20 MG TAB PO SCH (09:14)
[2018-07-27] MEDS: LOSARTAN 50 MG TAB PO SCH (09:14)
--- NOTE | 2018-07-27 10:48 | P.PN ---
Subjective Progress Note Date: 07/27/18 Principal diagnosis: Acute pancreatitis 67-year-old male admitted with acute biliary pancreatitis transaminitis possible underlying alcohol pancreatitis hepatitis; confused. Sitter at bedside. Refused labs this morning. He pulled out IV. Status post laparoscopic cholecystectomy yesterday. Afebrile. Objective - Vital Signs Vital signs: Vital Signs Temp 97.1 F L 07/27/18 05:00 Pulse 84 07/27/18 05:00 Resp 16 07/27/18 05:00 BP 121/67 07/27/18 05:00 Pulse Ox 97 07/27/18 05:00 Intake & Output 07/26/18 07/27/18 07/27/18 18:59 06:59 18:59 Intake Total 550 590 Output Total 5 Balance 545 590 Intake: IV 550 Oral 590 Output: Estimated Blood Loss 5 Other: Voiding Method Toilet Toilet Toilet # Voids 2 # Bowel Movements 1 - Exam General appearance: The patient is alert, agitated alert to self only. HET: Head is normocephalic and atraumatic. Pupils are equal and reactive. Oropharynx is clear without lesions. Neck: Supple without lymphadenopathy. Trachea midline. Heart: S1 S2. Regular rate and rhythm. Lungs: No crackles or wheezes are heard. Abdomen: Soft, surgical incisions without erythema or drainage, midepigastric tenderness, nondistended with bowel sounds. No peritoneal signs. No palpable organomegaly or masses. Extremities: Normal skin color and turgor. No cyanosis, rash, ulceration, clubbing, or edema. Radial and pedal pulses are 2/4 bilaterally. Neurological: No focal deficits. Strength and sensation are grossly intact. - Labs CBC & Chem 7: 07/26/18 07:44 07/26/18 07:44 Assessment and Plan (1) Acute pancreatitis Narrative/Plan: 67-year-old male admitted with acute upper abdominal pain elevated amylase lipase consistent with acute pancreatitis with transaminitis cholelithiasis per abdominal imaging suggestive of acute biliary pancreatitis. Underlying alcohol hepatitis pancreatitis cannot be entirely excluded. Transaminases improving. Current Visit: Yes Status: Acute Code(s): K85.90 - ACUTE PANCREATITIS WITHOUT NECROSIS OR INFECTION, UNSP SNOMED Code(s): 404313845 (2) Macrocytosis Current Visit: Yes Status: Acute Code(s): D75.89 - OTHER SPECIFIED DISEASES OF BLOOD AND BLOOD-FORMING ORGANS SNOMED Code(s): 908259576 (3) Cholelithiasis Current Visit: Yes Status: Acute Code(s): K80.20 - CALCULUS OF GALLBLADDER W /O CHOLECYSTITIS W/O OBSTRUCTION SNOMED Code(s): 163634450 (4) Transaminitis Current Visit: Yes Status: Acute Code(s): R74.0 - NONSPEC ELEV OF LEVELS OF TRANSAMNS & LACTIC ACID DEHYDRGNSE SNOMED Code(s): 484367579 (5) S/P laparoscopic cholecystectomy Current Visit: Yes Status: Acute Code(s): Z90.49 - ACQUIRED ABSENCE OF OTHER SPECIFIED PARTS OF DIGESTIVE TRACT SNOMED Code(s): 347682996 (6) Confusion Narrative/Plan: Suspect alcohol withdrawal delirium sitter at bedside Current Visit: Yes Status: Acute Code(s): R41.0 - DISORIENTATION, UNSPECIFIED SNOMED Code(s): 400512743 Plan: 1. Supportive measures. CIWA protocol. 2. Diet per surgery. Assessment and plan a care discussed with Dr. Peña
[2018-07-27] MEDS ORDERED: LORazepam 1 MG TAB PO PRN (12:02)
[2018-07-27] MEDS ORDERED: THIAMINE 100 MG/ML 2 ML VIAL IM STA (12:02)
--- NOTE | 2018-07-27 13:23 | P.PN ---
Subjective Progress Note Date: 07/27/18 67-year-old male seen at the bedside. Currently is a sitter at the bedside for elopement precautions. Patient currently is up ambulatory in the room pleasant and cooperative. Surgical dressing site dry abdomen soft nondistended and states urinating no difficulty in passing gas and tolerating diet no labs pending Postop 26 of July arthroscopic cholecystectomy for gallstone pancreatitis Objective - Vital Signs Vital signs: Vital Signs Temp 97.8 F 07/27/18 12:12 Pulse 78 07/27/18 12:12 Resp 16 07/27/18 12:12 BP 128/76 07/27/18 12:12 Pulse Ox 97 07/27/18 12:12 Intake & Output 07/26/18 07/27/18 07/27/18 18:59 06:59 18:59 Intake Total 550 590 Output Total 5 Balance 545 590 Intake: IV 550 Oral 590 Output: Estimated Blood Loss 5 Other: Voiding Method Toilet Toilet Toilet # Voids 2 # Bowel Movements 1 - Exam Physical exam Pleasant 67-year-old male up walking in the room pleasant cooperative states is anxious to go home sitter at the bedside for elopement precaution Lungs clear on room air no shortness of breath Heart S1-S2 audible regular Abdomen soft nondistended surgical dressing sites dry bowel tones present passing gas no stool no nausea no vomiting Extremities no edema - Labs CBC & Chem 7: 07/26/18 07:44 07/26/18 07:44 Assessment and Plan Assessment: Impression Present on admission upper abdominal pain suspect due to acute pancreatitis Present on admission elevated Transaminitis Ultrasound of the abdomen show cholelithiasis Acute pancreatitis unclear etiology Abdominal imaging suggestive of acute biliary pancreatitis History of alcohol use underlying alcohol hepatitis cannot be entirely excluded macrocytosis Unintentional weight loss New-onset confusion suspect alcohol withdrawal delirium sitter at bedside Plan Continue postop surgical care CIWA protocol in place Regular diet IV fluid for hydration Pain control Repeat labs in the morning DVT and GI prophylaxis From a surgical perspective is felt to be appropriate to be discharged home defer to the timing to the attending The above impression and plan of care have been discussed and directed by signing physician. Nan Rashid nurse practitioner acting as scribe for signing physician.
[2018-07-27] MEDS ORDERED: HYDROcodone/APAP 5-325MG 1 EACH TAB PO PRN (13:28)
--- NOTE | 2018-07-27 13:43 | CDI ---
Last Revision, September 2017 Documentation Clarification Form Date: 07/27/2018 1:26:53 PM From: Asuncion Root RN, CCDS Admit Date: 07/24/2018 10:38:00 PM Patient Name: Adam Belcher Visit Number: [id number] ATTENTION: The Clinical Documentation Specialists (CDI) and [facility] Coding Staff appreciate your assistance in clarifying documentation. Please respond to the clarification below the line at the bottom and electronically sign. The CDI & [facility] Coding staff will review the response and follow-up if needed. Please note: Queries are made part of the Legal Health Record. If you have any questions, please contact the author of this message via ITS. Shira Meadows MD A declining Hgb and Hct have been noted, please provide specificity to accurately reflect your patients severity of condition and clarification is needed. History/Risk Factors: nausea and vomiting x3 days, HTN, gallstone pancreatitis with lap choley Clinical indicators: Hemoglobin: 12.2/11.6/10.1 Hematocrit: 37.1/36.4/32 Treatment: monitoring labs 2L IVF Bolus In order to capture the severity of condition, please clarify the type of anemia and etiology if known: Acute blood loss anemia Acute on chronic blood loss anemia Chronic blood loss anemia Iron deficiency anemia Drug induced anemia Nutritional anemia Anemia of chronicdisease Unable to determine Other, please specify Please continue to document in your progress notes and discharge summary in order to capture severity of illness and risk of mortality. Include clinical findings that support your diagnosis. Unable to determine MTDD
[2018-07-27] MEDS: LORazepam 1 MG TAB PO PRN ×2 (13:53→19:59)
[2018-07-27] MEDS: THIAMINE 100 MG TAB PO SCH (13:53)
--- NOTE | 2018-07-27 16:00 | PN ---
PROGRESS NOTE DATE OF SERVICE: 07/27/2018. INTERVAL HISTORY: This 67-year-old gentleman who was admitted with multiple medical issues, acute pancreatitis, also had possibly gallstone pancreatitis. The patient underwent laparoscopic cholecystectomy yesterday. Last night the patient has some change in mental status and possibly fairly delirium tremens. The patient is confused. Patient will be closely monitored. Patient has renal failure also. Patient also hypovolemic hyponatremia. PAST MEDICAL HISTORY: Reviewed. REVIEW OF SYSTEMS: CARDIOVASCULAR: No angina. RESPIRATORY: As mentioned earlier. GI: As mentioned earlier. : No dysuria. NERVOUS SYSTEM: No numbness or weakness. CURRENT MEDICATIONS: Reviewed and include: 1. [place] 5 mg q.6h p.r.n. 2. Aspirin 81 mg supper. 3. Coreg 25 mg b.i.d. 4. Lexapro 20 mg daily. 5. Haldol 3 mg p.r.n. 6. Ativan 1 mg p.r.n. 7. CIWA protocol. 8. Cozaar 100 mg p.o. daily. 9. Narcan 0.2 q.2h p.r.n. 10.Zofran p.r.n. 11.Vitamin B1 p.r.n. PHYSICAL EXAM: Patient is alert, oriented x2. Pulse 78, blood pressure 128/76, respirations 16, temperature 97.8, pulse ox 97% on room air. HEENT: Conjunctivae normal. Oral mucosa moist. Neck is no jugular venous distention. No carotid bruit. No lymph node enlargement. CARDIOVASCULAR: S1, S2. RESPIRATORY: Breath sounds diminished in the bases. A few scattered rhonchi. No crackles. ABDOMEN: Soft, slightly obese and status post laparoscopic cholecystectomy. Slight postop tenderness. No guarding. No rigidity. No mass palpable. LEGS: No edema. NERVOUS SYSTEM: No focal deficits. LAB STUDIES: WBC 9, hemoglobin is 10.1 and MCV 117.2. Creatinine is 1.54. Lipase is 1826. AST and ALT noted. ASSESSMENT: 1. Acute pancreatitis, possibly gallstone pancreatitis. 2. Status post laparoscopic cholecystectomy. 3. Confusion acute delirium possibly delirium tremens. 4. History of acute renal failure. 5. Hypovolemic hyponatremia. 6. History of EtOH abuse. 7. Elevated MCV. 8. Lactic acidosis. 9. History of viral cardiomyopathy. 10.History of depression. 11.Hypertension. RECOMMENDATIONS AND DISCUSSION: I recommend to continue current management, continue monitoring, and symptomatic treatment. Otherwise, incentive spirometry, DVT prophylaxis. I would also recommend CIWA protocol, supplement vitamins. Social work to consult for the home situation. Guarded prognosis. Further recommendations to follow. MMFARNKIEL / IJN: [id number] /
[2018-07-27] MEDS: HEPARIN SODIUM,PORCINE 5,000 UNIT/ML 1 ML VIAL SQ SCH (20:18)
[2018-07-28] MEDS: HALOPERIDOL LACTATE 5 MG/ML 1 ML VIAL IM PRN ×3 (00:56→20:20)
[2018-07-28] MEDS: LORazepam 1 MG TAB PO PRN ×3 (03:14→17:52)
[2018-07-28] MEDS: PANTOPRAZOLE 40 MG TABLET PO SCH (09:39)
[2018-07-28] MEDS: CARVEDILOL 12.5 MG TAB PO SCH ×2 (09:39→17:48)
[2018-07-28] MEDS: LOSARTAN 50 MG TAB PO SCH (09:39)
[2018-07-28] MEDS: ASPIRIN 81 MG PO SCH (09:39)
[2018-07-28] MEDS: HEPARIN SODIUM,PORCINE 5,000 UNIT/ML 1 ML VIAL SQ SCH ×2 (09:39→20:20)
[2018-07-28] MEDS: ESCITALOPRAM 20 MG TAB PO SCH (09:39)
[2018-07-28 09:57] LABS: Basophils % (A) 0 %; Eosinophils # (A) 0.1 k/uL (0-0.7); Eosinophils % (A) 1 %; HCT 27.3 % (39.0-53.0); HGB 8.8 gm/dL (13.0-17.5); Lymphocytes % (A) 12 %; MCH 36.4 pg (25.0-35.0); MCV 113.7 fL (80.0-100.0); Macrocytosis Marked; Monocytes # (A) 0.6 k/uL (0-1.0); Monocytes % (A) 8 %; Neutrophils # (A) 6.1 k/uL (1.3-7.7); Neutrophils % (A) 78 %; Platelet Count 146 k/uL (150-450); RDW 15.8 % (11.5-15.5); WBC 7.9 k/uL (3.8-10.6)
[2018-07-28 10:10] LABS: Albumin 2.6 g/dL (3.5-5.0); Calcium 7.3 mg/dL (8.4-10.2); Magnesium 1.3 mg/dL (1.6-2.3); Total Bilirubin 0.6 mg/dL (0.2-1.3); Total Protein 5.4 g/dL (6.3-8.2)
--- NOTE | 2018-07-28 10:11 | P.PN ---
Subjective Progress Note Date: 07/28/18 Principal diagnosis: Cholecystitis Patient somewhat confused today. It is thought he is going through alcohol withdrawals currently. Mild abdominal pain. Tolerating diet. Objective - Vital Signs Vital signs: Vital Signs Temp 97.6 F 07/27/18 20:22 Pulse 79 07/27/18 20:22 Resp 17 07/27/18 20:22 BP 117/51 07/27/18 20:22 Pulse Ox 97 07/27/18 20:22 Intake & Output 07/27/18 07/28/18 07/28/18 18:59 06:59 18:59 Intake Total 120 Balance 120 Intake: Oral 120 Other: Voiding Method Toilet Toilet # Voids 3 1 - Exam Abdomen: Soft, nondistended, mild tenderness - Labs CBC & Chem 7: 07/28/18 09:32 07/28/18 09:32 Labs: Abnormal Lab Results - Last 24 Hours (Table) 07/27/18 07/28/18 07/28/18 Range/Units 15:58 09:32 09:32 RBC 2.40 L (4.30-5.90) m/uL Hgb 8.8 L (13.0-17.5) gm/dL Hct 27.3 L (39.0-53.0) % MCV 113.7 H (80.0-100.0) fL MCH 36.4 H (25.0-35.0) pg RDW 15.8 H (11.5-15.5) % Plt Count 146 L (150-450) k/uL Chloride 108 H (98-107) mmol/L BUN 22 H (9-20) mg/dL Calcium 7.3 L (8.4-10.2) mg/dL Magnesium 1.3 L (1.6-2.3) mg/dL AST 139 H (17-59) U/L ALT 73 H (21-72) U/L Total Protein 5.4 L (6.3-8.2) g/dL Albumin 2.6 L (3.5-5.0) g/dL Lipase 339 H (23-300) U/L Assessment and Plan Plan: Continue advancing diet. Increase activity. From a surgical standpoint stable for discharge.
[2018-07-28] MEDS: FOLIC ACID 1 MG TAB PO SCH (13:02)
[2018-07-28] MEDS: THIAMINE 100 MG TAB PO SCH ×2 (13:02→17:48)
[2018-07-28] MEDS: MULTIVITAMINS, THERA 1 EACH TAB PO SCH (13:02)
[2018-07-28] MEDS ORDERED: MAGNESIUM OXIDE 400 MG TAB PO STA (19:27)
[2018-07-28] MEDS: MAGNESIUM SULFATE-D5W PMX 1 GM in DEXTROSE/WATER 1 100ML.BAG IVPB SCH ×2 (19:50→20:16)
--- NOTE | 2018-07-28 20:16 | PN ---
PROGRESS NOTE DATE OF SERVICE: 07/28/2018. INTERVAL HISTORY: This 67-year-old gentleman admitted with acute pancreatitis also which had delirium tremens. The patient has been on Haldol and Ativan overnight. No chest pain. No palpitations. Patient is sedated at this time. EXAM: Pulse 81, blood pressure 138/77, respiration 18, temperature 98.6, pulse ox 97% on room air. HEENT: Oral mucosa moist. NECK: No jugular venous distention. No lymph node enlargement. CARDIOVASCULAR: S1 and S2 muffled. RESPIRATORY: Breath sounds diminished at the bases. Few rhonchi. No crackles. ABDOMEN: Soft, status post surgery. NERVOUS SYSTEM: No focal deficits. LAB STUDIES: WBC 11.7, hemoglobin is 8.2. Sodium 137, potassium 4, magnesium is 1.3. AST and ALT noted. Lipase is 305. ASSESSMENT: 1. Acute pancreatitis, possibly gallstone pancreatitis. 2. Status post laparoscopic cholecystectomy. 3. Confusion, acute delirium tremens. 4. Hypomagnesemia. 5. History of acute renal failure. 6. Hypovolemic hyponatremia. 7. History of EtOH abuse, increased MCV. 8. Lactic acidosis. 9. History of viral cardiomyopathy. 10.History of depression. 11.Hypertension. RECOMMENDATIONS: Recommend to continue current management and treatment. Otherwise at this time, repeat labs. Continue with CIWA protocol. Supplement vitamins. Guarded prognosis because of multiple complex medical issues. Further recommendation per Surgery. See orders for details. MMODL / IJN: [id number] /
[2018-07-29] MEDS: LORazepam 1 MG TAB PO PRN ×3 (03:56→22:07)
[2018-07-29 07:14] LABS: Anisocytosis Slight; Basophils % (A) 0 %; Eosinophils # (A) 0.1 k/uL (0-0.7); Eosinophils % (A) 1 %; HCT 27.4 % (39.0-53.0); HGB 8.8 gm/dL (13.0-17.5); Lymphocytes # (A) 1.3 k/uL (1.0-4.8); Lymphocytes % (A) 13 %; MCH 37.1 pg (25.0-35.0); MCHC 32.3 g/dL (31.0-37.0); Macrocytosis Marked; Mean Platelet Volume 7.4; Monocytes # (A) 0.9 k/uL (0-1.0); Monocytes % (A) 9 %; Neutrophils # (A) 7.2 k/uL (1.3-7.7); Neutrophils % (A) 76 %; Platelet Count 180 k/uL (150-450); RBC 2.38 m/uL (4.30-5.90); RDW 16.2 % (11.5-15.5); WBC 9.5 k/uL (3.8-10.6)
[2018-07-29 07:27] LABS: Albumin 2.5 g/dL (3.5-5.0); Calcium 7.5 mg/dL (8.4-10.2); Potassium 3.8 mmol/L (3.5-5.1); Total Bilirubin 0.5 mg/dL (0.2-1.3); Total Protein 5.1 g/dL (6.3-8.2)
--- NOTE | 2018-07-29 10:34 | P.PN ---
Subjective Progress Note Date: 07/29/18 Principal diagnosis: Cholecystitis Patient denies pain. Tolerating diet. White blood cell count normal. Objective - Vital Signs Vital signs: Vital Signs Temp 98.7 F 07/28/18 21:00 Pulse 91 07/29/18 00:00 Resp 16 07/29/18 00:00 BP 142/73 07/28/18 21:00 Pulse Ox 94 L 07/28/18 21:00 Intake & Output 07/28/18 07/29/18 07/29/18 18:59 06:59 18:59 Intake Total 250 1030 Balance 250 1030 Intake: Oral 250 1030 Other: Voiding Method Toilet Toilet # Voids 2 1 - Exam Abdomen: Soft, nondistended, mild tenderness - Labs CBC & Chem 7: 07/29/18 06:29 07/29/18 06:29 Labs: Abnormal Lab Results - Last 24 Hours (Table) 07/28/18 07/29/18 07/29/18 Range/Units 09:32 06:29 06:29 RBC 2.38 L (4.30-5.90) m/uL Hgb 8.8 L (13.0-17.5) gm/dL Hct 27.4 L (39.0-53.0) % MCV 115.0 H (80.0-100.0) fL MCH 37.1 H (25.0-35.0) pg RDW 16.2 H (11.5-15.5) % Calcium 7.5 L (8.4-10.2) mg/dL AST 103 H (17-59) U/L Total Protein 5.1 L (6.3-8.2) g/dL Albumin 2.5 L (3.5-5.0) g/dL Lipase 305 H (23-300) U/L Assessment and Plan (1) S/P laparoscopic cholecystectomy Narrative/Plan: Continue diet as tolerated. Ambulate. Discharge per medicine. Current Visit: Yes Status: Acute Code(s): Z90.49 - ACQUIRED ABSENCE OF OTHER SPECIFIED PARTS OF DIGESTIVE TRACT SNOMED Code(s): 803407215
[2018-07-29] MEDS: PANTOPRAZOLE 40 MG TABLET PO SCH (11:06)
[2018-07-29] MEDS: FOLIC ACID 1 MG TAB PO SCH (11:06)
[2018-07-29] MEDS: CARVEDILOL 12.5 MG TAB PO SCH ×2 (11:06→17:29)
[2018-07-29] MEDS: LOSARTAN 50 MG TAB PO SCH (11:06)
[2018-07-29] MEDS: ASPIRIN 81 MG PO SCH (11:06)
[2018-07-29] MEDS: THIAMINE 100 MG TAB PO SCH ×2 (11:06→17:29)
[2018-07-29] MEDS: MULTIVITAMINS, THERA 1 EACH TAB PO SCH (11:06)
[2018-07-29] MEDS: ESCITALOPRAM 20 MG TAB PO SCH (11:07)
[2018-07-29] MEDS: HEPARIN SODIUM,PORCINE 5,000 UNIT/ML 1 ML VIAL SQ SCH ×2 (11:07→20:03)
[2018-07-29] MEDS ORDERED: MIDAZOLAM 2 MG/2 ML VIAL ONE (13:45)
[2018-07-29] MEDS ORDERED: ONDANSETRON 4 MG/2 ML VIAL ONE (13:45)
[2018-07-29] MEDS ORDERED: ROCURONIUM BROMIDE 10 MG/ML 10 ML VIAL IV ONE (13:45)
[2018-07-29] MEDS ORDERED: fentaNYL (PF) 50 MCG/ML 2 ML AMP ONE (13:45)
[2018-07-29] MEDS ORDERED: DEXAMETHASONE SOD PHOS (MDV) 100 MG/10 ML VIAL ONE (13:45)
[2018-07-29] MEDS ORDERED: PROPOFOL 10 MG/ML 20 ML VIAL IV ONE (13:45)
[2018-07-29] MEDS ORDERED: LIDOCAINE 1% INJ 10MG/ML (20 ML MDV) ONE (13:45)
[2018-07-29] MEDS ORDERED: NEOSTIGMINE 1 MG/ML 10 ML VIAL ONE (13:45)
[2018-07-29] MEDS ORDERED: GLYCOPYRROLATE 0.2 MG/ML 2 ML VIAL ONE (13:45)
--- NOTE | 2018-07-29 17:12 | XR ---
EXAMINATION TYPE: XR chest 1V portable DATE OF EXAM: 07/29/2018 COMPARISON: 07/26/2019 HISTORY: Heart failure TECHNIQUE: Single frontal view of the chest is obtained. FINDINGS: There is no heart failure nor confluent pneumonic infiltrate. Costophrenic angles are buddy r. Thoracic aorta is atheromatous. Bony thorax is intact. IMPRESSION: No active cardiopulmonary disease. There is improved inspiration compared to last exam.
--- NOTE | 2018-07-29 18:32 | PN ---
PROGRESS NOTE DATE OF SERVICE: 07/29/2018 INTERVAL HISTORY: This 61-year-old gentleman who was admitted with acute pancreatitis had gallstone pancreatitis. Patient had laparoscopic cholecystectomy. Subsequently patient had a full-blown acute delirium tremens. Patient is confused. The patient is sedated with CIWA protocol. At this time, the patient being closely monitored. No chest pain. No palpitations. No shortness of breath. PHYSICAL EXAM: Alert and oriented x2. Pulse 77, blood pressure 113/50, respiratory 22, temperature 97.7, pulse ox 98% on room air. HEENT: Conjunctivae normal. Oral mucosa moist. Neck is no jugular venous distention. No carotid bruit. No lymph node enlargement. Cardiovascular systems: S1, S2. Respirations: Breath sounds diminished in the bases. A few rhonchi. No crackles. ABDOMEN: Soft. Obese. Otherwise status post laparoscopic cholecystectomy. Nervous system: No focal deficits. Mild diffuse weakness. Mild diffuse tremors also present. LABS: At this time, WBC 9.3, hemoglobin is 8.8. LFTs are much improving at this time. Albumin is 2.5. Amylase 66 and lipase is 305, improving. ASSESSMENT: 1. Acute pancreatitis, possibly gallstone pancreatitis. 2. Status post laparoscopic cholecystectomy for cholelithiasis. 3. Confusion. 4. Acute delirium tremens. 5. Hypomagnesemia. 6. History of acute renal failure. 7. Hypovolemic hyponatremia. 8. History of EtOH abuse. 9. Increased MCV. 10.Lactic acidosis. 11.History of cardiomyopathy. 12.Hypertension. 13.History of depression. RECOMMENDATIONS AND DISCUSSION: Recommend to continue current medications, continue symptomatic treatment. Continue CIWA protocol. Continue to supplement vitamins. Increase ambulation. Incentive spirometry. Otherwise, I would also recommend continue with DVT prophylaxis and I would also recommend a repeat chest x-ray to ensure normalcy. Otherwise, continue to monitor. Prognosis guarded because of multiple complex medical issues as detailed above. Closely follow with surgery. Further recommendations to follow. MMODL / IJN: [id number] / MTDD
[2018-07-30] MEDS: ESCITALOPRAM 20 MG TAB PO SCH (08:31)
[2018-07-30] MEDS: ASPIRIN 81 MG PO SCH (08:31)
[2018-07-30] MEDS: CARVEDILOL 12.5 MG TAB PO SCH (08:31)
[2018-07-30] MEDS: LOSARTAN 50 MG TAB PO SCH (08:31)
[2018-07-30] MEDS: PANTOPRAZOLE 40 MG TABLET PO SCH (08:32)
[2018-07-30] MEDS: HEPARIN SODIUM,PORCINE 5,000 UNIT/ML 1 ML VIAL SQ SCH (08:32)
[2018-07-30 09:00] LABS: ALT 81 U/L (21-72); AST 121 U/L (17-59); Albumin 2.6 g/dL (3.5-5.0); Alkaline Phosphatase 63 U/L (38-126); Amylase 75 U/L (30-110); Anion Gap 9 mmol/L; Blood Urea Nitrogen 14 mg/dL (9-20); Calcium 8.3 mg/dL (8.4-10.2); Carbon Dioxide 23 mmol/L (22-30); Chloride 106 mmol/L (98-107); Glucose 94 mg/dL (74-99); Potassium 3.9 mmol/L (3.5-5.1); Sodium 138 mmol/L (137-145); Total Bilirubin 0.5 mg/dL (0.2-1.3); Total Protein 5.4 g/dL (6.3-8.2)
[2018-07-30 09:37] LABS: HCT 26.2 % (39.0-53.0); HGB 8.6 gm/dL (13.0-17.5); MCH 36.9 pg (25.0-35.0); MCHC 32.9 g/dL (31.0-37.0); MCV 112.2 fL (80.0-100.0); Macrocytosis Marked; Mean Platelet Volume 8.6; Platelet Count 198 k/uL (150-450); RBC 2.34 m/uL (4.30-5.90); RDW 15.3 % (11.5-15.5)
[2018-07-30 11:21] LABS: Band Neutrophils % 1 %; Nucleated Red Blood Cells 1 /100 WBC (0-0)
[2018-07-30 11:25] LABS: Eosinophils # (M) 0.27 k/uL (0-0.7); Neutrophils % (M) 70 %; Total Cells Counted 200
[2018-07-30 11:37] LABS: Lymphocytes # (M) 1.25 k/uL (1.0-4.8); Monocytes # (M) 1.16 k/uL (0-1.0); WBC 8.9 k/uL (3.8-10.6)
[2018-07-30 12:38] VITALS: BP 158/90; PULSE 67; RESP 20; TEMP 98.4
--- NOTE | 2018-07-30 19:52 | DS ---
DISCHARGE SUMMARY DATE OF SERVICE: 07/30/2018 FINAL DIAGNOSES: 1. Acute pancreatitis possibly gallstone pancreatitis. 2. Status post laparoscopic cholecystectomy for cholelithiasis. 3. Confusion. 4. Acute delirium tremens. 5. Hypomagnesemia. 6. History of acute renal failure. 7. Hypovolemic hyponatremia. 8. History of EtOH abuse. 9. Increased MCV. 10.Lactic acidosis. 11.Hypertension. 12.History of depression. 13.History of cardiomyopathy. DISCHARGE DISPOSITION: The patient will be discharged in stable condition with guarded prognosis. Total time taken 35 minutes. HISTORY OF PRESENT ILLNESS: This 67-year-old gentleman with a past medical history of multiple medical problems was admitted with acute pancreatitis with gallstone pancreatitis. Patient underwent laparoscopic cholecystectomy by Dr. Mendoza. The patient also had delirium tremens and after surgery the patient had alcohol withdrawal syndrome and patient was treated closely and with [facility] protocol. Patient improved significantly. On exam, vitals are stable. Cardiovascular: S1, S2 normal. Abdomen: Soft, nontender. Nervous System: No focal deficit. DISCHARGE ADVICE: 1. Diet is cardiac. 2. Activity limited until followup. 3. Follow up with primary physician in 1-2 days. 4. Follow up with Dr. Mendoza as advised. 5. No ETOH. 6. Attend AA. MEDICATIONS: 1. Ecotrin 81 mg p.o. daily. 2. Lexapro 10 mg daily. 3. Losartan 100 mg p.o. daily. 4. Metoprolol 50 mg p.r.n. as before. 5. Nitro 0.4 sublingual p.r.n. 6. Zocor 20 mg q.h.s. 7. Coreg 25 mg p.o. b.i.d. 8. Folic acid 1 mg p.o. daily. 9. [place] 5 mg q.6h p.r.n. 10.Ativan 1 mg t.i.d. p.r.n. 11.Multivitamins 1 p.o. daily. 12.Protonix 40 mg p.o. daily. 13.Thiamine 100 mg p.o. daily. Once again, the patient will be discharged in stable condition with guarded prognosis. MMODL / IJN: [id number] /
== END 2018-07-30 13:25 | disposition home or self-care (01) | DRG 418 ==
LOC: EC 18:13 → 5MS5E 22:38
PROVIDERS: ADMIT Internal Medicine; ATTEND Internal Medicine
PROC: 0FT44ZZ Resection of Gallbladder, Percutaneous Endoscopic Approach (ICD-10-PCS; principal; 2018-07-26 11:10)
DX: K85.10 Biliary acute pancreatitis without necrosis or infection (principal); N17.9 Acute kidney failure, unspecified; K80.10 Calculus of gallbladder with chronic cholecystitis without obstruction; E87.1 Hypo-osmolality and hyponatremia; E87.2 Acidosis; F10.231 Alcohol dependence with withdrawal delirium; B33.24 Viral cardiomyopathy; E86.1 Hypovolemia; I25.10 Atherosclerotic heart disease of native coronary artery without angina pectoris; E83.42 Hypomagnesemia; D75.89 Other specified diseases of blood and blood-forming organs; E78.5 Hyperlipidemia, unspecified; I10 Essential (primary) hypertension; F32.9 Major depressive disorder, single episode, unspecified; F41.9 Anxiety disorder, unspecified; I44.7 Left bundle-branch block, unspecified; Z71.41 Alcohol abuse counseling and surveillance of alcoholic; Z79.82 Long term (current) use of aspirin; Z79.899 Other long term (current) drug therapy; Z87.891 Personal history of nicotine dependence
CPT/HCPCS: 36415; 71045; 74018; 76705; 80053; 80061; 81003; 82150; 82550; 82553; 82607; 83605; 83690; 83735; 84484; 85025; 85027; 85610; 85730; 88304; 93005; 96361; 96374; 96375; 96376; 99285

== ENCOUNTER 2019-01-09 09:16 | Day surgery (SDC) | payer MEDICARE, OTHER ==
[2019-01-07 15:12] VITALS: BMI 29.0
[~2019-01-09 09:16] MED LIST: DEXAMETHASONE SOD PHOSPHATE 10 MG/ML 1 ML VIAL IV ONE; HYDROmorphone 0.5 MG/0.5 ML SYRINGE IVP PRN; LACTATED RINGERS 1,000 ML IV SCH; LIDOCAINE 1% 20 ML VIAL (10MG/ML) FOR IV START INTRADERMA PRN; MIDAZOLAM (PF) 2 MG/2 ML VIAL IV PRN; MOXIFLOXACIN HCL 0.5% DROPS 3 ML BTL OP ONE; ONDANSETRON 4 MG/2 ML VIAL IVP ONE; SCOPOLAMINE 1.5MG/72HR PATCH TRANSDERM ONE; TETRACAINE 0.5% OPHTH (PF) DROPS 4 ML BTL OP ONE; TIMOLOL 0.5% OPHTH DROPS 5 ML BTL OP ONE
[2019-01-09] MEDS: CYCLOPENTOLATE 1% OPHTH SOLN 2 ML BTL OP ONE ×3 (10:00→10:19)
[2019-01-09 10:01] VITALS: RESP 16; TEMP 98.3
[2019-01-09] MEDS: PHENYLEPHRINE 2.5% OPHTH DRP 2ML OP NR ×3 (10:03→10:23)
[2019-01-09] MEDS ORDERED: fentaNYL (PF) 50 MCG/ML 2 ML AMP ONE (10:56)
[2019-01-09] MEDS ORDERED: MIDAZOLAM 2 MG/2 ML VIAL ONE (10:56)
[2019-01-09] MEDS ORDERED: BALANCED SALT IRRIG SOLN COMB2 15 ML IRRIG.SOLN IRRIGATION ONE (10:59)
[2019-01-09] MEDS ORDERED: HYALURONATE SODIUM INTRAOCULAR 1 EACH SYRINGE (12MG/ML) INTRAOCULA ONE (10:59)
[2019-01-09] MEDS ORDERED: LIDOCAINE 1% (PF) 10MG/ML VIAL SQ ONE (11:00)
[2019-01-09] MEDS ORDERED: EPINEPHrine (PF) 0.3 ML in BALANCED SALT IRRIG SOLN COMB2 500 ML IRRIGATION ONE (11:08)
[2019-01-09] MEDS ORDERED: EPINEPHrine 1 MG/ML 1 ML AMP IRRIGATION ONE (11:26)
--- NOTE | 2019-01-09 11:36 | P.OP ---
Date of Procedure: 01/09/19 Preoperative Diagnosis: NS & CS & PSC & reg astigmatism Postoperative Diagnosis: same Procedure(s) Performed: PIOL OS Implants: [id number] 14.50 Anesthesia: MAC Surgeon: Rahul Samayoa Estimated Blood Loss (ml): 0 Pathology: none sent Condition: stable Disposition: same day Indications for Procedure: blurry vision Operative Findings: No complications
[2019-01-09 11:55] VITALS: BP 144/85; PULSE 63
--- NOTE | 2019-01-09 21:17 | OP ---
OPERATIVE REPORT DATE OF SURGERY: January 09, 2019. PROCEDURE: Phacoemulsification of cataract and intraocular lens implant of the left eye. PREOPERATIVE DIAGNOSES: Nuclear sclerosis, cortical sclerosis, posterior subcapsular cataract and regular astigmatism. POSTOPERATIVE DIAGNOSES: Nuclear sclerosis, cortical sclerosis, posterior subcapsular cataract and regular astigmatism. SURGEON: Dr. Rahul Samayoa. ANESTHESIA: Topical. ESTIMATED BLOOD LOSS: None. SPECIMEN: Taken none. NARRATIVE: After obtaining the appropriate consent, the patient was brought to the operating room. There he was asked to sit upright so that the axes of 0 and 180 degrees were able to be marked at the corneal limbus with a gentian constantine marker. Once this was accomplished, he was laid in the proper supine position, prepped and draped in the usual sterile manner. Once this was accomplished, using previously acquired corneal topography information the axis of 82 degrees was identified and marked using and Nichamin corneal marking set. At the 5 o'clock position, an MVR blade was used to create a paracentesis port. Through this opening, 1% lidocaine MPF 50/50 mix with balanced salt solution was injected into the anterior chamber. This was followed by stabilization of the anterior chamber with Amvisc. At the 3 o'clock position, a 2.5 mm keratome was used to create a self-sealing corneal flap incision in Langerman's fashion. Through this opening, a cystotome was used to begin a continuous tear capsulorrhexis which was completed using the Utrata forceps. Hydrodissection and hydrodelineation of the lens was accomplished with balanced salt solution. Phacoemulsification lens utilizing phaco chop was accomplished in 16.63 seconds at 11% power. Additional Xylocaine MPF was instilled into the anterior chamber. This was followed by removal of the remaining cortex under irrigation and aspiration along with careful polishing of the capsule in the posterior capsule mode. Amvisc was then used to stabilize the capsular bag and an GERRY the ZCT 300 14.5 Diopter posterior chamber intraocular lens was then injected into the capsular bag without difficulty. The remaining viscoelastic was removed from in and around the intra-ocular lens as well as the anterior chamber. Just prior to removing the irrigation/aspiration instrument, the index steinberg of the toric implant were aligned with the 82 degree axis which had been previously placed on the patient's cornea. The lens was gently tapped into place to ensure maintenance of the desired rotation. The irrigation/aspiration instrument was then removed from the anterior chamber and the eye was hydrated with balanced salt solution through the paracentesis port. One last confirmation of the orientation of the lens was confirmed and the eye was confirmed watertight as well. He then received 2 drops of 0.5% timolol followed by 2 drops of moxifloxacin, was then lightly patched and shielded in the usual manner. There were no complications from the procedure. He tolerated the procedure well and was returned to outpatient recovery in good condition. MMODL / IJN: [id number] /
== END 2019-01-09 12:20 | disposition home or self-care (01) ==
LOC: OR 09:16
PROVIDERS: ATTEND Ophthalmology
DX: H25.12 Age-related nuclear cataract, left eye (principal); H25.012 Cortical age-related cataract, left eye; H52.222 Regular astigmatism, left eye; H04.129 Dry eye syndrome of unspecified lacrimal gland; H01.006 Unspecified blepharitis left eye, unspecified eyelid; H02.59 Other disorders affecting eyelid function; I11.9 Hypertensive heart disease without heart failure; I42.9 Cardiomyopathy, unspecified; I25.2 Old myocardial infarction; E78.5 Hyperlipidemia, unspecified; G47.33 Obstructive sleep apnea (adult) (pediatric); Z79.899 Other long term (current) drug therapy; Z79.82 Long term (current) use of aspirin; Z87.891 Personal history of nicotine dependence
CPT/HCPCS: 66984; V2787; C1780; J2250; J0171 ×2; J3010; J2001

== ENCOUNTER 2019-02-06 06:44 | Day surgery (SDC) | payer MEDICARE, OTHER ==
[2019-01-31 11:27] VITALS: BMI 29.7
[~2019-02-06 06:44] MED LIST changes: -DEXAMETHASONE SOD PHOSPHATE 10 MG/ML 1 ML VIAL IV ONE; -HYDROmorphone 0.5 MG/0.5 ML SYRINGE IVP PRN; -MIDAZOLAM (PF) 2 MG/2 ML VIAL IV PRN; -ONDANSETRON 4 MG/2 ML VIAL IVP ONE; -SCOPOLAMINE 1.5MG/72HR PATCH TRANSDERM ONE
[2019-02-06 07:13] VITALS: RESP 16; TEMP 98.7
[2019-02-06] MEDS: PHENYLEPHRINE 2.5% OPHTH DRP 2ML OP NR ×3 (07:15→07:29)
[2019-02-06] MEDS: CYCLOPENTOLATE 1% OPHTH SOLN 2 ML BTL OP ONE ×3 (07:20→07:31)
[2019-02-06] MEDS ORDERED: MIDAZOLAM 2 MG/2 ML VIAL ONE (08:01)
[2019-02-06] MEDS ORDERED: fentaNYL (PF) 50 MCG/ML 2 ML AMP ONE (08:01)
[2019-02-06] MEDS ORDERED: EPINEPHrine (PF) 0.3 ML in BALANCED SALT IRRIG SOLN COMB2 500 ML IRRIGATION ONE (08:14)
[2019-02-06] MEDS ORDERED: HYALURONATE SODIUM INTRAOCULAR 1 EACH SYRINGE (12MG/ML) INTRAOCULA ONE (08:15)
[2019-02-06] MEDS ORDERED: LIDOCAINE 1% (PF) 10MG/ML VIAL MISCELLANE ONE (08:16)
[2019-02-06] MEDS ORDERED: BALANCED SALT IRRIG SOLN COMB2 15 ML IRRIG.SOLN INTRAOCULA ONE (08:16)
--- NOTE | 2019-02-06 08:31 | P.OP ---
Date of Procedure: 02/06/19 Preoperative Diagnosis: NS & CS & PSC Postoperative Diagnosis: same Procedure(s) Performed: PIOL, OD Implants: PCB0 16.00 Anesthesia: MAC Surgeon: Rahul Samayoa Estimated Blood Loss (ml): 0 Pathology: none sent Condition: stable Disposition: same day Indications for Procedure: blurry vision Operative Findings: No complications
[2019-02-06 08:53] VITALS: BP 150/86; PULSE 60
[2019-02-06] MEDS ORDERED: ACETAMINOPHEN TAB 325 MG TAB PO ONE (08:59)
--- NOTE | 2019-02-06 12:56 | OP ---
OPERATIVE REPORT DATE OF SURGERY: 02/06/2019 PROCEDURE: Phacoemulsification of cataract and intraocular lens implant of the right eye. PREOPERATIVE DIAGNOSIS: Nuclear sclerosis, cortical sclerosis, posterior subcapsular cataract. POSTOPERATIVE DIAGNOSIS: Nuclear sclerosis, cortical sclerosis, posterior subcapsular cataract. ESTIMATED BLOOD LOSS:: Zero. SPECIMEN TAKEN:: None. NARRATIVE:: After obtaining the appropriate consent, the patient was brought to the Operating Room where the patient was placed under cardiac monitoring and prepped and draped in the usual sterile manner. At the 11 o'clock position a 15 degree super sharp blade was used to create a paracentesis followed by instillation of 1% Xylocaine MPF 50:50 mix with BSS into the anterior chamber. This was followed by Amvisc to stabilize the anterior chamber. At the 9 o'clock position a self-sealing corneal flap incision was created using 2.8 mm lorne keratome. A cystatome was used to initiate a continuous tear capsulorrhexis which was completed with the Utrata forceps. A Binkhorst cannula was used to hydrodissect the lens nucleus followed by hydrodelineation. Phacoemulsification of the lens was performed utilizing phacochop in 15.92 seconds at 15% power. The remaining cortical material was removed using the irrigation aspiration mode followed by additional 1% Xylocaine MPF into the anterior chamber followed by viscoelastic to stabilize the capsular bag. An GERRY PCB00 16.0 diopters posterior chamber lens was placed into the capsular bag without difficulty. The remaining viscoelastic material was removed from the anterior chamber with the irrigation/aspiration. Balanced salt solution was used to normalize the intraocular pressure. The incision was checked for watertight integrity. The patient then received two drops of 0.5% timolol followed by two drops Vigamox, was lightly patched and shielded in the usual manner. There were no complications from the procedure. The patient tolerated the procedure well and was returned to recovery in good condition. MMODL / IJN: [id number] /
== END 2019-02-06 09:08 | disposition home or self-care (01) ==
LOC: OR 06:44
PROVIDERS: ATTEND Ophthalmology
DX: H25.041 Posterior subcapsular polar age-related cataract, right eye (principal); H25.11 Age-related nuclear cataract, right eye; I25.2 Old myocardial infarction; I11.9 Hypertensive heart disease without heart failure; I43 Cardiomyopathy in diseases classified elsewhere; Z79.82 Long term (current) use of aspirin; Z79.899 Other long term (current) drug therapy
CPT/HCPCS: 66984; C1780; J2250; J0171; J3010; J2001

== ENCOUNTER 2021-07-23 08:32 | Day surgery (SDC) | payer MEDICARE, OTHER ==
[2021-07-15 14:43] VITALS: BMI 30.7
[~2021-07-23 08:32] MED LIST changes: +DEXAMETHASONE SOD PHOSPHATE 4 MG/ML 1 ML VIAL IV ONE; +HYDROmorphone 0.5 MG/0.5 ML SYRINGE IVP PRN; -LIDOCAINE 1% 20 ML VIAL (10MG/ML) FOR IV START INTRADERMA PRN; +MIDAZOLAM 2 MG/2 ML VIAL IV PRN; -MOXIFLOXACIN HCL 0.5% DROPS 3 ML BTL OP ONE; +ONDANSETRON 4 MG/2 ML VIAL IVP ONE; -TETRACAINE 0.5% OPHTH (PF) DROPS 4 ML BTL OP ONE; -TIMOLOL 0.5% OPHTH DROPS 5 ML BTL OP ONE
[2021-07-23] MEDS ORDERED: METOPROLOL TARTRATE 50 MG TAB PO STA (09:22)
[2021-07-23] MEDS ORDERED: LIDOCAINE 1% INJ 10MG/ML (20 ML MDV) ONE (10:43)
[2021-07-23] MEDS ORDERED: ePHEDrine SULFATE/0.9% NACL/PF 50 MG/5 ML SYRINGE IV ONE (10:43)
[2021-07-23] MEDS ORDERED: fentaNYL (PF) 50 MCG/ML 2 ML AMP ONE (10:43)
[2021-07-23] MEDS ORDERED: SUCCINYLCHOLINE CHLORIDE 100 MG/5 ML SYR IV ONE (10:43)
[2021-07-23] MEDS ORDERED: MIDAZOLAM 2 MG/2 ML VIAL ONE (10:43)
[2021-07-23] MEDS ORDERED: PROPOFOL 10 MG/ML 20 ML VIAL IV ONE (10:43)
[2021-07-23] MEDS ORDERED: BUPIVACAINE (PF) 0.25% 30 ML VIAL SQ ONE (11:00)
[2021-07-23] MEDS ORDERED: LACTATED RINGERS 1,000 ML IV ONE (11:45)
[2021-07-23 12:10] VITALS: TEMP 96.8
[2021-07-23 13:30] VITALS: BP 166/88; PULSE 69; RESP 17
--- NOTE | 2021-07-26 16:38 | OP ---
OPERATIVE REPORT DATE OF SURGERY: July 23, 2021. PREOP DIAGNOSIS: Hallux valgus, right foot. POSTOP DIAGNOSES: 1. Hallux valgus, right foot. 2. Gouty arthropathy, right first metatarsophalangeal joint. PROCEDURE PERFORMED: 1. Bunionectomy with distal metatarsal osteotomy, right foot. 2. Excision of gouty tophi, right first metatarsophalangeal joint. SURGEON: Jose Coleman DPM. ANESTHESIA: General. Hemostasis right ankle tourniquet two hundred fifty mmHg. ESTIMATED BLOOD LOSS: Minimal. MATERIALS: 1 Nova step core central locked bony fixation implant. INJECTABLES: 20 mL 0.25% Marcaine. PREOP SPECIMENS: None. COMPLICATIONS: None. OPERATIVE COURSE: The patient was brought into the operative room, placed on table in supine position. A well-padded tourniquet was placed on the right ankle and a time-out was taken to confirm correct patient identifiers, correct site of surgery and correct procedure. When the room was in agreement, the patient was induced, placed under general anesthesia. Then 20 mL 0.25% Marcaine was used as a right ankle block. The right foot was prepped and draped in usual manner. The foot was exsanguinated. The tourniquet inflated to 250 mmHg. Attention directed to the medial aspect of the right foot. A small medial incision was made over the first metatarsophalangeal joint. It was deepened down to the subcutaneous tissue careful to identify and retract the neurovascular structures and cauterize any bleeding vessels. Blunt dissection was continued down to the joint capsule, which was very boggy with palpation. Two semi- elliptical converging incisions were made to the medial joint capsule with the interposed piece of capsule removed which would help facilitate sesamoid correction upon closure and then yellow slightly cloudy fluid emerged from the joint that was thoroughly irrigated. It was noted that there was also areas of the tophus like material deposits throughout the soft tissues. As much of this was removed as possible and then a sagittal saw was used to resect the head of the first metatarsal maintaining the sesamoid sagittal groove. Then under fluoroscopy, a transverse osteotomy was performed to the first metatarsal proximal to the neck., It was done straight medial to lateral and 90 degrees to the long access. Once that was completed, it was shifted over laterally and then a pin inserted in the medullary canal to maintain the positioning of the various offset space was utilized to determine the correct amount of lateral displacement. Once that was determined, the guidewire was removed and then the implant with the correct amount of offset was implanted in the first metatarsal medullary canal and with the distal portion seated on the medial aspect of the first metatarsal head. A distal Asher locking screw was placed first and then the rotation in image of a locking jig were applied and then the frontal plane rotation was corrected under fluoroscopic visualization. Once properly aligned, guidewires were placed through the proximal aspect of the clamp to lock it in place and then holes were placed through the jig and the guide for the locking screws, which were then inserted through the intramedullary canal bicortically through the first metatarsal shaft. The wires and jig were then removed and then locking screws were placed in the distal metatarsal head. Once completed, there was full correction of the deformity. All hardware was properly placed and there was still an adequate amount of bony overlap of the capital fragment. The shelf of bone at the interface with the intramedullary device was reduced with a sagittal saw. All rough edges were then smoothed with a rasp. The great toe was taken through range of motion which was smooth, full and non-crepitant. The wound was then thoroughly irrigated with antibiotic saline and with a great toe held in correct position, the capsule was repaired with 0-Vicryl subcutaneous closed with 4-0 Monocryl, skin closure done with 3-0 Stratafix in a running subcuticular manner. Sterile dressing was applied within the incision as well as a dry sterile dressing. The tourniquet was released. Capillary refill returned to all digits of the right foot. The patient tolerated the procedure and anesthesia well, went to recovery with vital signs stable. MMODL / IJN: [id number] / ERINN
== END 2021-07-23 13:49 | disposition home or self-care (01) ==
LOC: OR 08:32
PROVIDERS: ATTEND Podiatrist
DX: M20.11 Hallux valgus (acquired), right foot (principal); M1A.9XX1 Chronic gout, unspecified, with tophus (tophi); I10 Essential (primary) hypertension; F32.9 Major depressive disorder, single episode, unspecified; Z85.820 Personal history of malignant melanoma of skin; Z79.899 Other long term (current) drug therapy; I25.2 Old myocardial infarction; F41.9 Anxiety disorder, unspecified; I42.9 Cardiomyopathy, unspecified
CPT/HCPCS: 28296; J2250; J1100; J0690; J2405; J2001; J3010; J0330; J2704

== ENCOUNTER 2023-10-21 06:59 | Observation (INO) | payer MEDICARE, OTHER ==
--- NOTE | 2023-10-21 07:25 | ED ---
General Adult HPI - General Chief complaint: Chest Pain Stated complaint: chest pain Time Seen by Provider: 10/21/23 07:21 Source: patient, RN notes reviewed Mode of arrival: ambulatory Limitations: no limitations - History of Present Illness Initial comments: Patient is a pleasant 73-year-old male presenting to the emergency department with concern for left-sided discomfort. Onset of symptoms was around 4 AM. Discomfort is left lower ribs. He should states it feels sore. Patient does feel short of breath. Patient did have recent cough however that has mostly resolved. No fevers. No nausea vomiting. No constipation or diarrhea. No diaphoresis. No history of similar symptoms previous. - Related Data Home Medications Medication Instructions Recorded Confirmed Aspirin [Adult Low Dose Aspirin EC] 81 mg PO DAILY 07/25/18 07/15/21 Losartan Potassium 100 mg PO DAILY 07/25/18 07/23/21 Metoprolol Tartrate [Lopressor] 50 mg PO BID 07/25/18 07/23/21 Simvastatin [Zocor] 20 mg PO DAILY 07/25/18 07/23/21 traZODone HCL 50 mg PO HS 01/31/19 07/23/21 Cyanocobalamin (Vitamin B-12) 1,000 mcg PO DAILY 07/15/21 07/23/21 [Vitamin B-12] Donepezil [Aricept] 5 mg PO DAILY 07/15/21 07/23/21 Escitalopram [Lexapro] 20 mg PO BID PRN 07/15/21 07/23/21 Gabapentin [Neurontin] 300 mg PO TID PRN 07/15/21 07/23/21 Previous Rx's Medication Instructions Recorded HYDROcodone/APAP 7.5-325MG [[place] 1 tab PO Q6HR PRN #30 tab 07/23/21 7.5-325] Allergies Allergy/AdvReac Type Severity Reaction Status Date / Time No Known Allergies Allergy Verified 07/23/21 09:05 Review of Systems ROS Statement: Those systems with pertinent positive or pertinent negative responses have been documented in the HPI. ROS Other: All systems not noted in ROS Statement are negative. Constitutional: Denies: fever Eyes: Denies: eye pain ENT: Denies: ear pain Respiratory: Reports: as per HPI, dyspnea. Denies: cough Cardiovascular: Reports: as per HPI, chest pain Endocrine: Denies: fatigue Genitourinary: Denies: dysuria Musculoskeletal: Denies: back pain Skin: Denies: rash Neurological: Denies: weakness Past Medical History Past Medical History: Hypertension, Myocardial Infarction ([place]), Osteoarthritis (OA), Sleep Apnea/CPAP/BIPAP Additional Past Medical History / Comment(s): Cardiomyopathy., Hx blood clot in arm after heart cath., sleep apnea(no c-pap)., [place] (1982,2012).,back pain., bunion right foot. Last Myocardial Infarction Date:: 2012 EST History of Any Multi-Drug Resistant Organisms: None Reported Past Surgical History: Cholecystectomy, Heart Catheterization, Hernia Repair Additional Past Surgical History / Comment(s): heart cath x3., COLONOSCOPY, cataracts., hx back injections. Past Anesthesia/Blood Transfusion Reactions: No Reported Reaction Past Psychological History: Anxiety, Depression Smoking Status: Former smoker Past Alcohol Use History: Daily Past Drug Use History: None Reported - Past Family History Mother Family Medical History: Cancer Additional Family Medical History / Comment(s): . General Exam Limitations: no limitations General appearance: alert, in no apparent distress Head exam: Present: normocephalic Eye exam: Present: normal appearance Neck exam: Present: normal inspection Respiratory exam: Present: normal lung sounds bilaterally, chest wall tenderness (Mild tenderness left lower ribs) Cardiovascular Exam: Present: regular rate, normal rhythm Expanded Peripheral pulses: 2+: Radial (R), Radial (L), Posterior Tibialis (R), Posterior Tibialis (L) GI/Abdominal exam: Present: soft, normal bowel sounds. Absent: distended, tenderness, guarding, rebound, rigid, pulsatile mass Extremities exam: Present: normal inspection. Absent: pedal edema, calf tenderness Neurological exam: Present: alert Psychiatric exam: Present: normal affect, normal mood Skin exam: Present: normal color Course Vital Signs 10/21/23 10/21/23 10/21/23 07:04 08:40 08:47 Temperature 98.7 F 98.6 F Pulse Rate 71 60 Pulse Rate [ 62 Cash Checker ] Respiratory 18 20 Rate Blood Pressure 164/90 161/94 O2 Sat by Pulse 98 96 Oximetry 10/21/23 10/21/23 08:50 09:00 Temperature Pulse Rate 60 61 Pulse Rate [ Cash Checker ] Respiratory 19 24 Rate Blood Pressure 139/87 150/89 O2 Sat by Pulse 96 95 Oximetry EKG Findings - EKG Results: EKG: interpreted by ERMD (Left axis. Left bundle branch block. Lateral T wave inversion.), sinus rhythm Medical Decision Making - Medical Decision Making Repeat EKG interpreted by myself as well. Sinus rhythm 65. Left axis. Left bundle branch block. Lateral T wave inversions. Was pt. sent in by a medical professional or institution (, [facility], [employer], urgent care, hospital, or [facility]...) When possible be specific @ -[No] Did you speak to anyone other than the patient for history (EMS, parent, family, police, friend...)? What history was obtained from this source @ -[No] Did you review nursing and triage notes (agree or disagree)? Why? @ -[I reviewed and agree with nursing and triage notes] Were old charts reviewed (outside hosp., previous admission, EMS record, old EKG, old radiological studies, urgent care reports/EKG's, [facility] records)? Report findings @ -[No old charts were reviewed] Differential Diagnosis (chest pain, altered mental status, abdominal pain women, abdominal pain men, vaginal bleeding, weakness, fever, dyspnea, syncope, headache, dizziness, GI bleed, back pain, seizure, CVA, palpatations, mental health, musculoskeletal)? @ -[not applicable] EKG interpreted by me (3pts min.). @ -[As above] X-rays interpreted by me (1pt min.). @ -Chest x-ray shows no acute process. CT interpreted by me (1pt min.). @ -[None done] U/S interpreted by me (1pt. min.). @ -[None done] What testing was considered but not performed or refused? (CT, X-rays, U/S, labs)? Why? @ -[None] What meds were considered but not given or refused? Why? @ -Consider antivirals however patient symptoms of cough for greater than 5 days. Did you discuss the management of the patient with other professionals (professionals i.e. , [facility], [employer], lab, RT, psych nurse, social and political studies professor, engraver rubber, teacher, fare enforcement officer, immigration case worker)? Give summary @ -Sound physician, Dr. Gutierrez will admit covering hospital call. He does request orthostatic blood pressure be checked. Was smoking cessation discussed for >3mins.? @ -[No] Was critical care preformed (if so, how long)? @ -[No] Were there social determinants of health that impacted care today? How? (Homel essness, low income, unemployed, alcoholism, drug addiction, transportation, low edu. Level, literacy, decrease access to med. care, penitentiary, rehab)? @ -[No] Was there de-escalation of care discussed even if they declined (Discuss DNR or withdrawal of care, Hospice)? DNR status @ -[No] What co-morbidities impacted this encounter? (DM, HTN, Smoking, COPD, CAD, Cancer, CVA, ARF, Chemo, Hep., AIDS, mental health diagnosis, sleep apnea, morbid obesity)? @ -[None] Was patient admitted / discharged? Hospital course, mention meds given and route, prescriptions, significant lab abnormalities, going to OR and other pertinent info. @ -Patient has had mild improvement with nitroglycerin. Patient did have near syncopal episode in the emergency department. Patient be admitted with cardiac consultation. Orders written. Undiagnosed new problem with uncertain prognosis? @ -[No] Drug Therapy requiring intensive monitoring for toxicity (Heparin, Nitro, Insulin, Cardizem)? @ -[No] Were any procedures done? @ -[No] Diagnosis/symptom? @ -1: Chest pain. 2:: covid Acute, or Chronic, or Acute on Chronic? @ - Acute, acute] Uncomplicated (without systemic symptoms) or Complicated (systemic symptoms)? @ -[default] Side effects of treatment? @ -[No] Exacerbation, Progression, or Severe Exacerbation? @ -[No] Poses a threat to life or bodily function? How? (Chest pain, [place], [place], pneumonia, PE, COPD, DKA, ARF, appy, cholecystitis, CVA, Diverticulitis, Homicidal, Suicidal, threat to staff... and all critical care pts) @ -[No] - Lab Data Result diagrams: 10/21/23 07:25 10/21/23 07:25 Lab Results 10/21/23 10/21/23 10/21/23 Range/Units 07:25 07:25 07:25 WBC 6.9 (3.8-10.6) k/uL RBC 3.77 L (4.30-5.90) m/uL Hgb 13.3 (13.0-17.5) gm/dL Hct 39.9 (39.0-53.0) % MCV 105.9 H (80.0-100.0) fL MCH 35.4 H (25.0-35.0) pg MCHC 33.4 (31.0-37.0) g/dL RDW 12.5 (11.5-15.5) % Plt Count 213 (150-450) k/uL MPV 7.7 Neutrophils % 56 % Lymphocytes % 33 % Monocytes % 6 % Eosinophils % 1 % Basophils % 1 % Neutrophils # 3.9 (1.3-7.7) k/uL Lymphocytes # 2.3 (1.0-4.8) k/uL Monocytes # 0.4 (0-1.0) k/uL Eosinophils # 0.1 (0-0.7) k/uL Basophils # 0.0 (0-0.2) k/uL Macrocytosis Slight PT 11.4 (10.0-12.5) sec INR 1.1 (<1.2) APTT 23.1 (22.0-30.0) sec D-Dimer 0.57 (<0.60) mg/L FEU Sodium 135 L (137-145) mmol/L Potassium 5.4 H (3.5-5.1) mmol/L Chloride 104 (98-107) mmol/L Carbon Dioxide 19 L (22-30) mmol/L Anion Gap 12 mmol/L BUN 18 (9-20) mg/dL Creatinine 0.69 (0.66-1.25) mg/dL Est GFR (CKD-EPI)AfAm >90 (>60 ml/min/1.73 sqM) Est GFR (CKD-EPI)NonAf >90 (>60 ml/min/1.73 sqM) Glucose 102 H (74-99) mg/dL Calcium 9.0 (8.4-10.2) mg/dL Magnesium 1.7 (1.6-2.3) mg/dL Total Bilirubin 0.9 (0.2-1.3) mg/dL AST 60 H (17-59) U/L ALT 36 (4-49) U/L Alkaline Phosphatase 33 L (38-126) U/L Troponin I (0.000-0.034) ng/mL Total Protein 7.3 (6.3-8.2) g/dL Albumin 3.9 (3.5-5.0) g/dL Influenza Type A (PCR) (Not Detectd) Influenza Type B (PCR) (Not Detectd) RSV (PCR) (Not Detectd) SARS-CoV-2 (PCR) (Not Detectd) 10/21/23 10/21/23 Range/Units 07:25 07:25 WBC (3.8-10.6) k/uL RBC (4.30-5.90) m/uL Hgb (13.0-17.5) gm/dL Hct (39.0-53.0) % MCV (80.0-100.0) fL MCH (25.0-35.0) pg MCHC (31.0-37.0) g/dL RDW (11.5-15.5) % Plt Count (150-450) k/uL MPV Neutrophils % % Lymphocytes % % Monocytes % % Eosinophils % % Basophils % % Neutrophils # (1.3-7.7) k/uL Lymphocytes # (1.0-4.8) k/uL Monocytes # (0-1.0) k/uL Eosinophils # (0-0.7) k/uL Basophils # (0-0.2) k/uL Macrocytosis PT (10.0-12.5) sec INR (<1.2) APTT (22.0-30.0) sec D-Dimer (<0.60) mg/L FEU Sodium (137-145) mmol/L Potassium (3.5-5.1) mmol/L Chloride (98-107) mmol/L Carbon Dioxide (22-30) mmol/L Anion Gap mmol/L BUN (9-20) mg/dL Creatinine (0.66-1.25) mg/dL Est GFR (CKD-EPI)AfAm (>60 ml/min/1.73 sqM) Est GFR (CKD-EPI)NonAf (>60 ml/min/1.73 sqM) Glucose (74-99) mg/dL Calcium (8.4-10.2) mg/dL Magnesium (1.6-2.3) mg/dL Total Bilirubin (0.2-1.3) mg/dL AST (17-59) U/L ALT (4-49) U/L Alkaline Phosphatase (38-126) U/L Troponin I <0.012 (0.000-0.034) ng/mL Total Protein (6.3-8.2) g/dL Albumin (3.5-5.0) g/dL Influenza Type A (PCR) Not Detected (Not Detectd) Influenza Type B (PCR) Not Detected (Not Detectd) RSV (PCR) Not Detected (Not Detectd) SARS-CoV-2 (PCR) Detected A (Not Detectd) Disposition Clinical Impression: Chest pain, COVID-19 Disposition: ADMITTED IP TO THIS HOSP Referrals: Danis Rubalcava DO [Primary Care Provider] - 1-2 days Time of Disposition: 09:08
--- NOTE | 2023-10-21 07:54 | XR ---
EXAMINATION TYPE: XR chest 2V DATE OF EXAM: 10/21/2023 7:46 AM CLINICAL INDICATION:Male, 73 years old with history of Chest Pain; COMPARISON: Chest radiographs from 07/29/2018 TECHNIQUE: XR chest 2V Frontal and lateral views of the chest. FINDINGS: Lungs/Pleura: There is no evidence of pleural effusion, focal consolidation, or pneumothorax. Pulmonary vascularity: Unremarkable. Heart/mediastinum: Cardiomediastinal silhouette is unremarkable. Musculoskeletal: No acute osseous pathology. IMPRESSION: No acute cardiopulmonary disease/process.
[2023-10-21 08:23] LABS: Basophils % (A) 1 %; Eosinophils # (A) 0.1 k/uL (0-0.7); Eosinophils % (A) 1 %; HCT 39.9 % (39.0-53.0); HGB 13.3 gm/dL (13.0-17.5); Lymphocytes # (A) 2.3 k/uL (1.0-4.8); Lymphocytes % (A) 33 %; MCH 35.4 pg (25.0-35.0); MCHC 33.4 g/dL (31.0-37.0); MCV 105.9 fL (80.0-100.0); Macrocytosis Slight; Mean Platelet Volume 7.7; Monocytes # (A) 0.4 k/uL (0-1.0); Monocytes % (A) 6 %; Neutrophils # (A) 3.9 k/uL (1.3-7.7); Neutrophils % (A) 56 %; Platelet Count 213 k/uL (150-450); RBC 3.77 m/uL (4.30-5.90); RDW 12.5 % (11.5-15.5); WBC 6.9 k/uL (3.8-10.6)
[2023-10-21 08:40] LABS: INR 1.1 (<1.2); Partial Thromboplastin Time 23.1 sec (22.0-30.0); Prothrombin Time 11.4 sec (10.0-12.5)
[2023-10-21] MEDS: ASPIRIN 81 MG PO STA (08:43)
[2023-10-21] MEDS: NITROGLYCERIN SL TABS 0.4 MG TAB SUBLINGUAL STA ×3 (08:46→08:57)
[2023-10-21 08:50] LABS: ALT 36 U/L (4-49); AST 60 U/L (17-59); African American GFR (CKD) >90 (>60 ml/min/1.73 sqM); Albumin 3.9 g/dL (3.5-5.0); Alkaline Phosphatase 33 U/L (38-126); Anion Gap 12 mmol/L; Blood Urea Nitrogen 18 mg/dL (9-20); Carbon Dioxide 19 mmol/L (22-30); Chloride 104 mmol/L (98-107); Glucose 102 mg/dL (74-99); Magnesium 1.7 mg/dL (1.6-2.3); Non-African American GFR(CKD) >90 (>60 ml/min/1.73 sqM); Sodium 135 mmol/L (137-145); Total Bilirubin 0.9 mg/dL (0.2-1.3); Total Protein 7.3 g/dL (6.3-8.2)
[2023-10-21 08:52] LABS: Potassium 5.4 mmol/L (3.5-5.1)
[2023-10-21] MEDS: MORPHINE SULFATE 4 MG/ML SYRINGE IVP STA (09:06)
[2023-10-21] MEDS ORDERED: MORPHINE SULFATE 4 MG/ML SYRINGE IV PRN (09:08)
[2023-10-21] MEDS ORDERED: NITROGLYCERIN SL TABS 0.4 MG TAB SUBLINGUAL PRN (09:08)
[2023-10-21] MEDS: NITROGLYCERIN OINT 1 INCH/GM PACKET TOPICAL SCH (11:07)
[2023-10-21] MEDS: MORPHINE SULFATE 4 MG/ML SYRINGE IV PRN (11:08)
[2023-10-21] MEDS ORDERED: IOPAMIDOL CONTRAST (ORAL USE) VIAL PO PRN (11:48)
[2023-10-21] MEDS ORDERED: ESCITALOPRAM 20 MG TAB PO PRN (13:36)
--- NOTE | 2023-10-21 13:41 | P.HPIM ---
History of Present Illness H&P Date: 10/21/23 Patient is a 73-year-old male with history of alcohol dependence, hypertension, dyslipidemia, CAD presenting with severe abdominal pain. He claims that him and his started having upper respiratory symptoms about 5 days ago. She was tested positive for COVID-19. He started to improve however, last night he woke up with severe left upper quadrant abdominal pain. He denies any nausea, vomiting, diarrhea, constipation. His last bowel movement was today. He is also complaining of some shortness of breath. He denies any significant fevers or chills. He was also complaining of lower left chest discomfort. In the ED, temperature was 98.7, blood pressure 164/90, saturating at 98% on room air, pulse 71, respiratory rate 18. WBC 6.9, hemoglobin 13.3, bicarb 19, creatinine 0.69, troponin negative 2, COVID-19 positive. EKG independently interpreted, shows left bundle branch block which has been present previously. Chest x-ray and apparently interpreted, shows no opacities. Patient was pending discharge from emergency however had presyncopal episode. He was subsequently admitted for observation and further workup. Etiology also consulted. Pertinent positives and negatives as discussed in HPI, a complete review of systems was performed and all other systems are negative. Patient seen and examined at bedside. Vital signs reviewed General: nontoxic, no distress, appears at stated age Derm: warm, dry Head: atraumatic, normocephalic, symmetric Eyes: EOMI, no lid lag, anicteric sclera, pupils equal round reactive to light ENT: Nose and ears atraumatic Neck: No thyromegaly, supple Mouth: no lip lesion, mucus membranes moist Cardiovascular: S1S2 reg, no murmur, no edema Lungs: clear to auscultation bilateral, no rhonchi, no rales, no wheeze, no acc essory muscle use Abdominal: soft, tender to palpation in left upper quadrant, no guarding, no appreciable organomegaly Ext: no gross muscle atrophy, muscle strength muscle strength 5 out of 5 in all 4 extremities, no contractures Neuro: CN II-XII grossly intact Psych: Alert, oriented, appropriate affect Assessment/Plan: Active: Right upper quadrant abdominal pain Acute COVID-19 infection Right Lower chest discomfort with dyspnea History of CAD Presyncope Hypertension Dyslipidemia -Abdominal pain possibly in the setting of COVID-19 infection -CT abdomen and pelvis pending -Troponin negative 2 -Not complaining of any significant chest discomfort -Cardiology consulted -Telemetry -Currently on room air -Orthostatic vitals negative -Continue aspirin 81 mg -Continue rosuvastatin 20 mg daily -Continue home metoprolol 50 mg twice a day -On morphine IV as needed for chest discomfort, monitor for respiratory depression The patient is admitted with an anticipated less than 2 midnight stay as observation status for evaluation of chest discomfort. Surrogate decision-maker: CODE STATUS: Full code DVT prophylaxis: Lovenox Anticipated discharge date: Pending clinical course Anticipated discharge place: Pending clinical course A total of 55 minutes was spent on the care of this complex patient more than 50% of the time was spent in counseling and care coordination. Past Medical History Past Medical History: Hypertension, Myocardial Infarction ([place]), Osteoarthritis (OA), Sleep Apnea/CPAP/BIPAP Additional Past Medical History / Comment(s): Cardiomyopathy., Hx blood clot in arm after heart cath., sleep apnea(no c-pap)., [place] (1982,2012).,back pain., bunion right foot. Last Myocardial Infarction Date:: 2012 EST History of Any Multi-Drug Resistant Organisms: None Reported Past Surgical History: Cholecystectomy, Heart Catheterization, Hernia Repair Additional Past Surgical History / Comment(s): heart cath x3., COLONOSCOPY, cataracts., hx back injections. Past Anesthesia/Blood Transfusion Reactions: No Reported Reaction Past Psychological History: Anxiety, Depression Smoking Status: Former smoker Past Alcohol Use History: Daily Past Drug Use History: None Reported - Past Family History Mother Family Medical History: Cancer Additional Family Medical History / Comment(s): . Medications and Allergies Home Medications Medication Instructions Recorded Confirmed Type Metoprolol Tartrate [Lopressor] 50 mg PO BID 07/25/18 10/21/23 History Escitalopram [Lexapro] 20 mg PO BID PRN 07/15/21 10/21/23 History Doxycycline Hyclate 100 mg PO BID 10/21/23 10/21/23 History Melatonin(Unknown Dose) 1 tab PO HS PRN 10/21/23 10/21/23 History Rosuvastatin [Crestor] 20 mg PO DAILY 10/21/23 10/21/23 History Allergies Allergy/AdvReac Type Severity Reaction Status Date / Time No Known Allergies Allergy Verified 10/21/23 13:14 Physical Exam Vitals: Vital Signs Temp Pulse Pulse Resp BP BP BP 10/21/23 13:15 97.7 F 71 19 168/92 10/21/23 12:25 73 18 10/21/23 11:05 51 L 19 146/84 10/21/23 10:00 55 L 17 126/79 10/21/23 09:12 137/82 10/21/23 09:11 130/82 10/21/23 09:10 10/21/23 09:00 61 24 150/89 10/21/23 08:50 60 19 139/87 10/21/23 08:47 62 10/21/23 08:40 98.6 F 60 20 161/94 10/21/23 07:04 98.7 F 71 18 164/90 BP Pulse Ox 10/21/23 13:15 96 10/21/23 12:25 95 10/21/23 11:05 95 10/21/23 10:00 96 10/21/23 09:12 10/21/23 09:11 10/21/23 09:10 135/80 10/21/23 09:00 95 10/21/23 08:50 96 10/21/23 08:47 10/21/23 08:40 96 10/21/23 07:04 98 Intake and Output 10/20/23 10/21/23 10/21/23 22:59 06:59 14:59 Other: Weight 82.1 kg Results CBC & Chem 7: 10/21/23 07:25 10/21/23 07:25 Labs: Abnormal Lab Results - Last 24 Hours (Table) 10/21/23 10/21/23 10/21/23 Range/Units 07:25 07:25 07:25 RBC 3.77 L (4.30-5.90) m/uL MCV 105.9 H (80.0-100.0) fL MCH 35.4 H (25.0-35.0) pg Sodium 135 L (137-145) mmol/L Potassium 5.4 H (3.5-5.1) mmol/L Carbon Dioxide 19 L (22-30) mmol/L Glucose 102 H (74-99) mg/dL AST 60 H (17-59) U/L Alkaline Phosphatase 33 L (38-126) U/L SARS-CoV-2 (PCR) Detected A (Not Detectd)
[2023-10-21] MEDS: THIAMINE 100 MG TAB PO SCH (16:39)
--- NOTE | 2023-10-21 17:14 | CT ---
EXAMINATION TYPE: CT abdomen pelvis w con DATE OF EXAM: 10/21/2023 COMPARISON: NONE HISTORY: 73-year-old male Abdominal pain, Covid + TECHNIQUE: Contiguous axial scanning of the abdomen and pelvis following administration of 100 ml Iso ingrid 300 IV contrast. Delayed images through the kidneys and coronal/sagittal reconstructions perform ed. CT DLP: 1187.9 mGycm Automated exposure control for dose reduction was used. FINDINGS: Heart borderline enlarged without pericardial effusion. Patchy peripheral interstitial densities are present at the lung bases without pleural effusion. This may reflect some chronic changes or patient' s reported COVID. No focal liver lesion or biliary ductal dilatation. Portal venous system is patent. Cholecystectomy c lips. Adrenal glands, right kidney, spleen, and pancreas show no gross abnormality. Duplex left renal collecting system. There is atrophy of the left lower pole moiety and mild fullness of this lower pole collecting system. No dilated small bowel, free fluid, or free air. No mesenteric or retroperitoneal lymphadenopathy. Moderate atherosclerotic calcifications throughout the abdominal aorta and common iliac arteries. Normal appendix. Scattered mild stool. Left-sided colonic diverticulosis. No pericolonic inflammatory change. Bladder is urine distended. Prostate gland borderline in size at 4.1 cm wide with central calcificati ons. Right-sided pelvic phlebolith noted. No abnormal fluid collection in the pelvis or pelvic lympha denopathy. Hypertrophic facet arthropathy lower lumbar spine with grade 1 anterolisthesis L4-L5. IMPRESSION: 1. DUPLEX LEFT RENAL COLLECTING SYSTEM WITH ATROPHIC LEFT LOWER POLE MOIETY. 2. Left-sided colonic diverticulosis without evidence for acute diverticulitis. 3. Status post cholecystectomy. No acute inflammatory process identified in the abdomen or pelvis to explain patient's symptoms.
[2023-10-21] MEDS: METOPROLOL TARTRATE 50 MG TAB PO SCH (21:20)
[2023-10-21] MEDS: MELATONIN 5 MG TABLET PO PRN (21:20)
[2023-10-21 21:28] VITALS: RESP 16
[2023-10-22 05:22] LABS: African American GFR (CKD) >90 (>60 ml/min/1.73 sqM); Anion Gap 8 mmol/L; Blood Urea Nitrogen 14 mg/dL (9-20); Carbon Dioxide 26 mmol/L (22-30); Chloride 98 mmol/L (98-107); Glucose 97 mg/dL (74-99); Non-African American GFR(CKD) >90 (>60 ml/min/1.73 sqM); Sodium 132 mmol/L (137-145)
[2023-10-22 07:10] VITALS: BP 168/89; PULSE 63; TEMP 98
[2023-10-22] MEDS: ASPIRIN 81 MG PO SCH (08:16)
[2023-10-22] MEDS: ATORVASTATIN 40 MG TAB PO SCH (08:16)
[2023-10-22] MEDS: ENOXAPARIN 40 MG/0.4 ML SYRINGE SQ SCH (08:16)
[2023-10-22] MEDS ORDERED: ASPIRIN 325 MG TAB PO SCH (09:00)
[2023-10-22 10:37] LABS: Chol/HDL Ratio 1.79 Ratio; LDL Cholesterol,Calculated 31.7 mg/dL (0.0-131.0)
--- NOTE | 2023-10-22 11:32 | P.CRDCN ---
History of Present Illness Consult date: 10/22/23 Consult reason: chest pain History of present illness: Cardiology consult placed for chest pain. Patient has been discharged by admitting service prior to cardiology evaluation. Past Medical History Past Medical History: Hypertension, Myocardial Infarction ([place]), Osteoarthritis (OA), Sleep Apnea/CPAP/BIPAP Additional Past Medical History / Comment(s): Cardiomyopathy., Hx blood clot in arm after heart cath., sleep apnea(no c-pap)., [place] (1982,2012).,back pain., bunion right foot. Last Myocardial Infarction Date:: 2012 EST History of Any Multi-Drug Resistant Organisms: None Reported Past Surgical History: Cholecystectomy, Heart Catheterization, Hernia Repair Additional Past Surgical History / Comment(s): heart cath x3., COLONOSCOPY, cataracts., hx back injections. Past Anesthesia/Blood Transfusion Reactions: No Reported Reaction Past Psychological History: Anxiety, Depression Smoking Status: Never smoker Past Alcohol Use History: Daily Additional Past Alcohol Use History / Comment(s): SMOKED YEARS AGO, EARLY 20'S, SOCIALLY. DRINKS 1 GLASS WINE DAILY Past Drug Use History: None Reported - Past Family History Mother Family Medical History: Cancer Additional Family Medical History / Comment(s): . Medications and Allergies Home Medications Medication Instructions Recorded Confirmed Type Metoprolol Tartrate [Lopressor] 50 mg PO BID 07/25/18 10/21/23 History Escitalopram [Lexapro] 20 mg PO BID PRN 07/15/21 10/21/23 History Melatonin(Unknown Dose) 1 tab PO HS PRN 10/21/23 10/21/23 History Rosuvastatin [Crestor] 20 mg PO DAILY 10/21/23 10/21/23 History Aspirin 81 mg PO DAILY #30 tab 10/22/23 Rx Benzonatate [Tessalon Perles] 100 mg PO TID PRN #30 capsule 10/22/23 Rx HYDROcodone/APAP 5-325MG [[place] 1 tab PO Q6HR PRN 3 Days #12 tab 10/22/23 Rx 5-325] Allergies Allergy/AdvReac Type Severity Reaction Status Date / Time No Known Allergies Allergy Verified 10/21/23 13:14 Physical Exam Vitals: Vital Signs Temp Pulse Pulse Pulse Resp BP BP 10/22/23 09:08 10/22/23 07:00 98.0 F 63 16 168/89 10/22/23 00:50 98.6 F 60 16 167/63 10/21/23 19:07 98.2 F 60 16 144/77 10/21/23 15:00 97.5 F L 58 L 18 164/75 10/21/23 13:15 97.7 F 71 19 168/92 10/21/23 12:25 73 18 Pulse Ox 10/22/23 09:08 98 10/22/23 07:00 98 10/22/23 00:50 96 10/21/23 19:07 94 L 10/21/23 15:00 96 10/21/23 13:15 96 10/21/23 12:25 95 Intake and Output 10/21/23 10/22/23 10/22/23 22:59 06:59 14:59 Intake Total 240 118 Balance 240 118 Intake: Oral 240 118 Other: # Voids 1 1 Results 10/21/23 07:25 10/22/23 04:56 Cardiac Enzymes 10/21/23 10/21/23 Range/Units 11:44 14:09 Troponin I <0.012 <0.012 (0.000-0.034) ng/mL Lipids 10/22/23 Range/Units 04:56 Triglycerides 122.00 (0.00-149.00) mg/dL Cholesterol 127.00 (0.00-200.00) mg/dL HDL Cholesterol 70.90 H (40.00-60.00) mg/dL Cholesterol/HDL Ratio 1.79 Ratio Comprehensive Metabolic Panel 10/22/23 Range/Units 04:56 Sodium 132 L (137-145) mmol/L Potassium 4.0 (3.5-5.1) mmol/L Chloride 98 (98-107) mmol/L Carbon Dioxide 26 (22-30) mmol/L BUN 14 (9-20) mg/dL Creatinine 0.70 (0.66-1.25) mg/dL Glucose 97 (74-99) mg/dL Calcium 9.0 (8.4-10.2) mg/dL Current Medications Generic Name Dose Route Start Last Admin Trade Name Freq PRN Reason Stop Dose Admin Aspirin 81 mg 10/22/23 09:00 10/22/23 08:16 Aspirin 81 Mg PO 81 mg DAILY MARIS Administration Atorvastatin Calcium 40 mg 10/22/23 09:00 10/22/23 08:16 Atorvastatin 40 Mg Tab PO 40 mg DAILY MARIS Administration Enoxaparin Sodium 40 mg 10/22/23 09:00 10/22/23 08:16 Enoxaparin 40 Mg/0.4 Ml Syringe SQ 40 mg DAILY MARIS Administration Iopamidol 30 ml 10/21/23 11:48 Iopamidol Contrast (Oral Use) Vial PO 10/22/23 11:[address] Scan Melatonin 5 mg 10/21/23 20:53 10/21/23 21:20 Melatonin 5 Mg Tablet PO 5 mg HS PRN Administration Insomnia Metoprolol Tartrate 50 mg 10/21/23 21:00 10/22/23 08:16 Metoprolol Tartrate 50 Mg Tab PO 50 mg BID MARIS Administration Morphine Sulfate 4 mg 10/21/23 09:17 10/21/23 16:41 Morphine Sulfate 4 Mg/Ml Syringe IV 4 mg Q2H PRN Administration Chest Pain Nitroglycerin 0.4 mg 10/21/23 09:08 Nitroglycerin Sl Tabs 0.4 Mg Tab SUBLINGUAL Q5M PRN Chest Pain Thiamine HCl 100 mg 10/21/23 16:00 10/22/23 08:16 Thiamine 100 Mg Tab PO 100 mg DAILY MARIS Administration Intake and Output 10/21/23 10/22/23 10/22/23 22:59 06:59 14:59 Intake Total 240 118 Balance 240 118 Intake: Oral 240 118 Other: # Voids 1 1 10/21/23 07:25 10/22/23 04:56
--- NOTE | 2023-10-22 11:35 | P.DS ---
Providers Date of admission: 10/21/23 09:08 Expected date of discharge: 10/22/23 Attending physician: Cyrus Dueñas MD Consults: 10/21/23 09:08 Consult Physician Urgent Consulting Provider: Gideon Suarez Consult Reason/Comments: cp Do you want consulting provider notified?: Yes Primary care physician: [facility] Course: Patient is a 73-year-old male with history of alcohol dependence, hypertension, dyslipidemia, CAD presenting with severe abdominal pain. He claims that him and his started having upper respiratory symptoms about 5 days ago. She was te sted positive for COVID-19. He started to improve however, last night he woke up with severe left upper quadrant abdominal pain. He denies any nausea, vomiting, diarrhea, constipation. His last bowel movement was today. He is also complaining of some shortness of breath. He denies any significant fevers or chills. He was also complaining of lower left chest discomfort. In the ED, temperature was 98.7, blood pressure 164/90, saturating at 98% on room air, pulse 71, respiratory rate 18. WBC 6.9, hemoglobin 13.3, bicarb 19, creatinine 0.69, troponin negative 2, COVID-19 positive. EKG independently interpreted, shows left bundle branch block which has been present previously. Chest x-ray and apparently interpreted, shows no opacities. Patient was pending discharge from emergency however had presyncopal episode. He was subsequently admitted for observation and further workup. CT AP was done negative for intraabdominal pathology. Troponins trended, ACS ruled out. 10/22 Patient was seen and examined. He reports significant improvement in his LUQ/L chest pain. Pain is worsened with cough and deep inspiration. His D-Dimer is negative, low concerns for PE. Orthostats are negative. His chest wall is tender to palpation. His chest pain is likely musculoskeletal. He is refusing any cardiac intervention and would like to go home. He is advised to follow up with his PCP within 1-2 days and Customer Greeter within 1 week of discharge. Pertinent studies EKG. CXR. CTAP General: nontoxic, moderate distress, appears at stated age Derm: warm, dry Head: atraumatic, normocephalic, symmetric Eyes: EOMI, no lid lag, anicteric sclera ENT: Nose and ears atraumatic Neck: No thyromegaly, supple Cardiovascular: S1S2 reg, no murmur, no edema Lungs: clear to auscultation bilateral, no rhonchi, no rales, no wheeze, no accessory muscle use Abdominal: soft, nontender to palpation, no guarding, no appreciable organomegaly Ext: no gross muscle atrophy, muscle strength muscle strength 5 out of 5 in all 4 extremities, no contractures Psych: Alert, oriented, appropriate affect Discharge Diagnosis: Atypical chest pain/LUQ abdominal pain Presyncope Acute COVID-19 infection History of CAD Presyncope Hypertension Dyslipidemia This complex discharge took 35 minutes to complete. Patient Condition at Discharge: Stable Plan - Discharge Summary Discharge Rx Participant: Yes New Discharge Prescriptions: New Aspirin 81 mg PO DAILY #30 tab HYDROcodone/APAP 5-325MG [[place] 5-325] 1 tab PO Q6HR PRN 3 Days #12 tab PRN Reason: Severe Breakthrough Pain Benzonatate [Tessalon Perles] 100 mg PO TID PRN #30 capsule PRN Reason: Cough Continue Metoprolol Tartrate [Lopressor] 50 mg PO BID Escitalopram [Lexapro] 20 mg PO BID PRN PRN Reason: Anxiety Rosuvastatin [Crestor] 20 mg PO DAILY Melatonin(Unknown Dose) 1 tab PO HS PRN PRN Reason: Insomnia Discontinued Doxycycline Hyclate 100 mg PO BID Discharge Medication List Metoprolol Tartrate [Lopressor] 50 mg PO BID 07/25/18 [History] Escitalopram [Lexapro] 20 mg PO BID PRN 07/15/21 [History] Melatonin(Unknown Dose) 1 tab PO HS PRN 10/21/23 [History] Rosuvastatin [Crestor] 20 mg PO DAILY 10/21/23 [History] Aspirin 81 mg PO DAILY #30 tab 10/22/23 [Rx] Benzonatate [Tessalon Perles] 100 mg PO TID PRN #30 capsule 10/22/23 [Rx] HYDROcodone/APAP 5-325MG [[place] 5-325] 1 tab PO Q6HR PRN 3 Days #12 tab 10/22/23 [Rx] Follow up Appointment(s)/Referral(s): Danis Rubalcava DO [Primary Care Provider] - 1-2 days Activity/Diet/Wound Care/Special Instructions: Diet: Cardiac Follow up with your Customer Greeter within 1 week of discharge. Discharge Disposition: HOME SELF-CARE
== END 2023-10-22 11:25 | disposition home or self-care (01) ==
LOC: EC 06:59 → 6NMEDSUR 09:08
PROVIDERS: ADMIT Student in an Organized Health Care Education/Training Program; ATTEND Student in an Organized Health Care Education/Training Program
DX: R07.89 Other chest pain (principal); R10.12 Left upper quadrant pain; U07.1 COVID-19; R55 Syncope and collapse; R10.11 Right upper quadrant pain; I10 Essential (primary) hypertension; I25.2 Old myocardial infarction; M19.90 Unspecified osteoarthritis, unspecified site; G47.30 Sleep apnea, unspecified; M54.9 Dorsalgia, unspecified; I42.9 Cardiomyopathy, unspecified; F32.A Depression, unspecified; F41.9 Anxiety disorder, unspecified; I44.7 Left bundle-branch block, unspecified; I25.10 Atherosclerotic heart disease of native coronary artery without angina pectoris; E78.5 Hyperlipidemia, unspecified; Z87.891 Personal history of nicotine dependence; Z79.82 Long term (current) use of aspirin; Z79.899 Other long term (current) drug therapy; Z90.49 Acquired absence of other specified parts of digestive tract; Z80.9 Family history of malignant neoplasm, unspecified
CPT/HCPCS: 96376; 96372; 96374; 96375; 99285; 36415; 93005; 85379; 80061; 80053; 80048; 83735; 84484; 85025; 85610; 85730; 87636; 71046; 74177; G0378 ×2; J2270; J1650; Q9967

== ENCOUNTER 2024-02-21 04:44 | Inpatient (IN) | payer MEDICARE ==
[2024-02-21 04:47] LABS: Glucose,Whole Blood 125 mg/dL (70-110)
--- NOTE | 2024-02-21 05:11 | ED ---
Weakness HPI - General Chief complaint: Weakness Stated complaint: Hypertension Time Seen by Provider: 02/21/24 04:51 Source: patient, EMS Mode of arrival: EMS - History of Present Illness Initial comments: This patient is a 73-year-old man who presents to evaluation because he is experiencing generalized weakness and he is having trouble walking. The patient states that he had done a fair amount of exertion over the weekend. He states that he had attached approximately 1 acre of sadler. He noticed on Monday that he was feeling an increase in fatigue. He states that if he got up to walk he was short of breath and he was lightheaded. Things are worse today he states t hat he was "bouncing off zamudio" when he tried to walk. When questioned about chest pain he states that he did have about 6 hours of left-sided chest pain on Monday night. He states he was also short of breath and was at times sweaty. The pain resolved and he is not having any pain right now. MD Complaint: generalized weakness, difficulty walking -: days(s) Location: generalized Severity: moderate Consistency: constant Improves with: none Worsens with: exertion Associated Symptoms: chest pain, shortness of breath - Related Data Home Medications Medication Instructions Recorded Confirmed Rosuvastatin [Crestor] 20 mg PO DAILY 10/21/23 02/21/24 Previous Rx's Medication Instructions Recorded Dapagliflozin Propanediol [Farxiga] 10 mg PO DAILY #60 tab 02/22/24 Furosemide [Lasix] 40 mg PO DAILY #60 tab 02/22/24 Losartan [Cozaar] 25 mg PO DAILY #60 tab 02/22/24 Metoprolol Succinate (ER) [Toprol 12.5 mg PO DAILY #60 tab 02/22/24 XL] Thiamine [Vitamin B-1] 100 mg PO DAILY #60 tab 02/22/24 Allergies Allergy/AdvReac Type Severity Reaction Status Date / Time No Known Allergies Allergy Verified 10/21/23 13:14 Review of Systems ROS Statement: Those systems with pertinent positive or pertinent negative responses have been documented in the HPI. ROS Other: All systems not noted in ROS Statement are negative. Constitutional: Reports: weakness. Denies: fever, chills Eyes: Denies: vision change Respiratory: Reports: as per HPI, dyspnea. Denies: cough, wheezes Cardiovascular: Reports: as per HPI, chest pain, dyspnea on exertion. Denies: palpitations, edema, syncope Gastrointestinal: Denies: abdominal pain, nausea, vomiting, diarrhea, melena, hematochezia Genitourinary: Denies: dysuria, hematuria Musculoskeletal: Denies: back pain Skin: Denies: rash Neurological: Denies: headache, weakness, numbness, confusion Past Medical History Past Medical History: Hypertension, Myocardial Infarction ([place]), Osteoarthritis ([place]), Sleep Apnea/CPAP/BIPAP Additional Past Medical History / Comment(s): Cardiomyopathy., Hx blood clot in arm after heart cath., sleep apnea(no c-pap)., [place] (1982,2012).,back pain., bunion right foot. Last Myocardial Infarction Date:: 2012 EST History of Any Multi-Drug Resistant Organisms: None Reported Past Surgical History: Cholecystectomy, Heart Catheterization, Hernia Repair Additional Past Surgical History / Comment(s): heart cath x3., COLONOSCOPY, cataracts., hx back injections. Past Anesthesia/Blood Transfusion Reactions: No Reported Reaction Past Psychological History: Anxiety, Depression Smoking Status: Never smoker Past Alcohol Use History: Daily Past Drug Use History: None Reported - Past Family History Mother Family Medical History: Cancer Additional Family Medical History / Comment(s): . General Exam General appearance: alert, in no apparent distress Head exam: Present: atraumatic, normocephalic Eye exam: Present: normal appearance. Absent: scleral icterus, conjunctival injection ENT exam: Present: normal oropharynx Neck exam: Present: normal inspection Respiratory exam: Present: rales (Bilateral bases). Absent: respiratory distress, wheezes, rhonchi, stridor, chest wall tenderness, accessory muscle use, decreased breath sounds, prolonged expiratory Cardiovascular Exam: Present: regular rate, normal rhythm, normal heart sounds. Absent: systolic murmur, diastolic murmur, rubs, gallop GI/Abdominal exam: Present: soft. Absent: distended, tenderness, guarding, rebound, rigid, mass Extremities exam: Present: normal inspection, normal capillary refill. Absent: pedal edema, calf tenderness Back exam: Present: normal inspection. Absent: CVA tenderness (R), CVA tenderness (L) Neurological exam: Present: alert. Absent: motor sensory deficit Skin exam: Present: warm, dry, intact, normal color. Absent: rash Course Vital Signs 02/21/24 02/21/2424 04:45 06:15 07:25 Temperature 99.0 F 97.9 F Pulse Rate 80 69 71 Pulse Rate [ Pulse Oximetery ] Respiratory 20 19 20 Rate Blood Pressure 169/112 156/96 154/95 Blood Pressure [Left Arm] O2 Sat by Pulse 95 95 95 Oximetry 02/21/24 02/21/24 02/21/24 09:05 10:05 11:09 Temperature 98.0 F 97.8 F Pulse Rate 61 79 64 Pulse Rate [ Pulse Oximetery ] Respiratory 18 18 17 Rate Blood Pressure 141/86 134/98 152/52 Blood Pressure [Left Arm] O2 Sat by Pulse 95 95 98 Oximetry 02/21/24 02/21/24 02/21/24 12:10 14:00 16:00 Temperature 97.9 F Pulse Rate 64 Pulse Rate [ 70 Pulse Oximetery ] Respiratory 19 18 18 Rate Blood Pressure 138/89 Blood Pressure 131/84 [Left Arm] O2 Sat by Pulse 97 97 Oximetry 02/21/24 02/21/24 02/22/24 22:00 23:31 05:30 Temperature Pulse Rate 76 72 75 Pulse Rate [ Pulse Oximetery ] Respiratory 18 19 16 Rate Blood Pressure 134/70 136/89 134/70 Blood Pressure [Left Arm] O2 Sat by Pulse 97 98 97 Oximetry 02/22/24 02/22/24 02/22/24 07:05 08:38 09:04 Temperature Pulse Rate 89 70 80 Pulse Rate [ Pulse Oximetery ] Respiratory 18 18 18 Rate Blood Pressure 145/99 145/99 132/92 Blood Pressure [Left Arm] O2 Sat by Pulse 99 98 96 Oximetry EKG Findings - EKG Results: EKG: interpreted by ERMD, sinus rhythm (Rate 86 bpm) - Blocks, [place], Hypertrophy, ST Abn: AV and intraventricular conduction: left bundle branch block (fixed/intermittent, complete/incomplete) QRS axis and voltage: left axis deviation (-30 to -90) Medical Decision Making - Medical Decision Making The patient had chest x-ray that I interpreted to show presence of congestive heart failure. No pneumothorax. Patient is 73-year-old man presenting with generalized weakness. His exam concerning for congestive heart failure. X-ray and lab studies confirm. Patient states that he was to have had outpatient echo but was not able to keep his appointment due to his daughter's recent cancer treatment. In light of this , will admit to have diuresis, echocardiogram, cardiology consultation. Was pt. sent in by a medical professional or institution (, [facility], [facility], urgent care, hospital, or residential...) When possible be specific @ -[No] Did you speak to anyone other than the patient for history (EMS, parent, family, police, friend...)? What history was obtained from this source @ -[No] Did you review nursing and triage notes (agree or disagree)? Why? @ -[I reviewed and agree with nursing and triage notes] Were old charts reviewed (outside hosp., previous admission, EMS record, old EKG, old radiological studies, urgent care reports/EKG's, residential records)? Report findings @ -[No old charts were reviewed] Differential Diagnosis (chest pain, altered mental status, abdominal pain women, abdominal pain men, vaginal bleeding, weakness, fever, dyspnea, syncope, headache, dizziness, GI bleed, back pain, seizure, CVA, palpatations, mental health, musculoskeletal)? @ -[Differential Weakness: Hypoglycemia, shock, sepsis, hyponatremia, anemia, infection, [place], ETOH, adverse medicine reaction, overdose, stroke, this is not meant to be an all-inclusive list. EKG interpreted by me (3pts min.). @ -[I interpreted as above] X-rays interpreted by me (1pt min.). @ -[I interpreted as above CT interpreted by me (1pt min.). @ -[None done] U/S interpreted by me (1pt. min.). @ -[None done] What testing was considered but not performed or refused? (CT, X-rays, U/S, labs)? Why? @ -[None] What meds were considered but not given or refused? Why? @ -[None] Did you discuss the management of the patient with other professionals (professionals i.e. NICKI Song, [facility] PULLER, lab, RT, psych nurse, social services aide, derrick boat captain, teacher, money position officer, supervisor case loading)? Give summary @ -[Case discussed with admitting physician and treatment recommendations incorporated Was smoking cessation discussed for >3mins.? @ -[No] Was critical care preformed (if so, how long)? @ -[No] Were there social determinants of health that impacted care today? How? (Homelessness, low income, unemployed, alcoholism, drug addiction, tra nsportation, low edu. Level, literacy, decrease access to med. care, longterm, rehab)? @ -[No] Was there de-escalation of care discussed even if they declined (Discuss DNR or withdrawal of care, Hospice)? DNR status @ -[No] What co-morbidities impacted this encounter? (DM, HTN, Smoking, COPD, CAD, Can cer, CVA, ARF, Chemo, Hep., AIDS, mental health diagnosis, sleep apnea, morbid obesity)? @ -[Cardiomyopathy, hypertension Was patient admitted / discharged? Hospital course, mention meds given and ro claudio, prescriptions, significant lab abnormalities, going to OR and other pertinent info. @ -[As above Undiagnosed new problem with uncertain prognosis? @ -[No] Drug Therapy requiring intensive monitoring for toxicity (Heparin, Nitro, Insulin, Cardizem)? @ -[No] Were any procedures done? @ -[No] Diagnosis/symptom? @ -[Exacerbation of congestive heart failure Hypertension Hypomagnesemia Acute, or Chronic, or Acute on Chronic? @ -[Acute on chronic Uncomplicated (without systemic symptoms) or Complicated (systemic symptoms)? @ -[Uncomplicated Side effects of treatment? @ -[No] Exacerbation, Progression, or Severe Exacerbation? @ -[Exacerbation Poses a threat to life or bodily function? How? (Chest pain, [place], [place], pneumonia, PE, COPD, DKA, ARF, appy, cholecystitis, CVA, Diverticulitis, Homicidal, Suicidal, threat to staff... and all critical care pts) @ -[No] - Lab Data Result diagrams: 02/21/24 04:53 02/22/24 08:11 Lab Results 02/21/24 02/21/24 02/21/24 Range/Units 04:46 04:53 04:53 WBC 9.5 (3.8-10.6) k/uL RBC 3.72 L (4.30-5.90) m/uL Hgb 13.7 (13.0-17.5) gm/dL Hct 40.9 (39.0-53.0) % MCV 109.7 H (80.0-100.0) fL MCH 36.8 H (25.0-35.0) pg MCHC 33.6 (31.0-37.0) g/dL RDW 12.9 (11.5-15.5) % Plt Count 146 L (150-450) k/uL MPV 9.2 Neutrophils % 75 % Lymphocytes % 15 % Monocytes % 7 % Eosinophils % 1 % Basophils % 0 % Neutrophils # 7.1 (1.3-7.7) k/uL Lymphocytes # 1.5 (1.0-4.8) k/uL Monocytes # 0.6 (0-1.0) k/uL Eosinophils # 0.1 (0-0.7) k/uL Basophils # 0.0 (0-0.2) k/uL Manual Slide Review Performed Macrocytosis Marked A PT 11.1 (10.0-12.5) sec INR 1.0 (<1.2) APTT 23.1 (22.0-30.0) sec Sodium (137-145) mmol/L Potassium (3.5-5.1) mmol/L Chloride (98-107) mmol/L Carbon Dioxide (22-30) mmol/L Anion Gap mmol/L BUN (9-20) mg/dL Creatinine (0.66-1.25) mg/dL Est GFR (CKD-EPI)AfAm (>60 ml/min/1.73 sqM) Est GFR (CKD-EPI)NonAf (>60 ml/min/1.73 sqM) Glucose (74-99) mg/dL POC Glucose (mg/dL) 125 H (70-110) mg/dL POC Glu Yarn Rewinder Velia Winters Calcium (8.4-10.2) mg/dL Magnesium (1.6-2.3) mg/dL Total Bilirubin (0.2-1.3) mg/dL AST (17-59) U/L ALT (4-49) U/L Alkaline Phosphatase (38-126) U/L Troponin I (0.000-0.034) ng/mL NT-Pro-B Natriuret Pep pg/mL Total Protein (6.3-8.2) g/dL Albumin (3.5-5.0) g/dL 02/21/24 02/21/24 02/21/24 Range/Units 04:53 04:53 04:53 WBC (3.8-10.6) k/uL RBC (4.30-5.90) m/uL Hgb (13.0-17.5) gm/dL Hct (39.0-53.0) % MCV (80.0-100.0) fL MCH (25.0-35.0) pg MCHC (31.0-37.0) g/dL RDW (11.5-15.5) % Plt Count (150-450) k/uL MPV Neutrophils % % Lymphocytes % % Monocytes % % Eosinophils % % Basophils % % Neutrophils # (1.3-7.7) k/uL Lymphocytes # (1.0-4.8) k/uL Monocytes # (0-1.0) k/uL Eosinophils # (0-0.7) k/uL Basophils # (0-0.2) k/uL Manual Slide Review Macrocytosis PT (10.0-12.5) sec INR (<1.2) APTT (22.0-30.0) sec Sodium 134 L (137-145) mmol/L Potassium 4.8 (3.5-5.1) mmol/L Chloride 106 (98-107) mmol/L Carbon Dioxide 20 L (22-30) mmol/L Anion Gap 8 mmol/L BUN 22 H (9-20) mg/dL Creatinine 0.91 (0.66-1.25) mg/dL Est GFR (CKD-EPI)AfAm >90 (>60 ml/min/1.73 sqM) Est GFR (CKD-EPI)NonAf 84 (>60 ml/min/1.73 sqM) Glucose 116 H (74-99) mg/dL POC Glucose (mg/dL) (70-110) mg/dL POC Glu Yarn Rewinder ID Calcium 9.5 (8.4-10.2) mg/dL Magnesium 1.5 L (1.6-2.3) mg/dL Total Bilirubin 0.9 (0.2-1.3) mg/dL AST 36 (17-59) U/L ALT 25 (4-49) U/L Alkaline Phosphatase 35 L (38-126) U/L Troponin I <0.012 (0.000-0.034) ng/mL NT-Pro-B Natriuret Pep 2290 pg/mL Total Protein 7.2 (6.3-8.2) g/dL Albumin 4.0 (3.5-5.0) g/dL Disposition Clinical Impression: CHF (congestive heart failure), Hypertension, Hypomagnesemia Disposition: ADMITTED IP TO THIS HOSP Condition: Stable Is patient prescribed a controlled substance at d/c from ED?: No
[2024-02-21 05:16] LABS: Partial Thromboplastin Time 23.1 sec (22.0-30.0); Prothrombin Time 11.1 sec (10.0-12.5)
[2024-02-21 05:28] LABS: ALT 25 U/L (4-49); AST 36 U/L (17-59); African American GFR (CKD) >90 (>60 ml/min/1.73 sqM); Alkaline Phosphatase 35 U/L (38-126); Anion Gap 8 mmol/L; Blood Urea Nitrogen 22 mg/dL (9-20); Calcium 9.5 mg/dL (8.4-10.2); Carbon Dioxide 20 mmol/L (22-30); Chloride 106 mmol/L (98-107); Glucose 116 mg/dL (74-99); Magnesium 1.5 mg/dL (1.6-2.3); Non-African American GFR(CKD) 84 (>60 ml/min/1.73 sqM); Sodium 134 mmol/L (137-145); Total Bilirubin 0.9 mg/dL (0.2-1.3); Total Protein 7.2 g/dL (6.3-8.2)
[2024-02-21 05:44] LABS: Potassium 4.8 mmol/L (3.5-5.1)
--- NOTE | 2024-02-21 06:06 | XR ---
EXAM: XR Chest, 2 Views CLINICAL HISTORY: ITS.REASON XR Reason: Chest Pain TECHNIQUE: Frontal and lateral views of the chest. COMPARISON: 10/21/23 FINDINGS: Lungs: Diffuse increased interstitial markings which may reflect edema or pneumonia. Bibasilar atelectasis. Pleural space: No large effusion. No pneumothorax. Heart: Cardiovascular silhouette, upper limits of normal, likely accentuated by low lung volume. Mediastinum: Unremarkable. Normal mediastinal contour. Bones/joints: Unremarkable. No acute fracture. Vasculature: Tortuous calcified thoracic aorta again seen. IMPRESSION: 1. Low lung volume limit evaluation. 2. Mild interstitial edema or pneumonia.
[2024-02-21 06:36] LABS: Basophils % (A) 0 %; Eosinophils # (A) 0.1 k/uL (0-0.7); Eosinophils % (A) 1 %; HCT 40.9 % (39.0-53.0); HGB 13.7 gm/dL (13.0-17.5); Lymphocytes # (A) 1.5 k/uL (1.0-4.8); Lymphocytes % (A) 15 %; MCH 36.8 pg (25.0-35.0); MCHC 33.6 g/dL (31.0-37.0); MCV 109.7 fL (80.0-100.0); Macrocytosis Marked; Mean Platelet Volume 9.2; Monocytes # (A) 0.6 k/uL (0-1.0); Monocytes % (A) 7 %; Neutrophils # (A) 7.1 k/uL (1.3-7.7); Neutrophils % (A) 75 %; Platelet Count 146 k/uL (150-450); RBC 3.72 m/uL (4.30-5.90); RDW 12.9 % (11.5-15.5); WBC 9.5 k/uL (3.8-10.6)
[2024-02-21] MEDS: ASPIRIN 81 MG PO STA (06:56)
[2024-02-21] MEDS: NITROGLYCERIN OINT 1 INCH/GM PACKET TOPICAL STA (06:57)
[2024-02-21] MEDS: FUROSEMIDE 10 MG/ML 4 ML VIAL IV STA (06:58)
[2024-02-21] MEDS: MAGNESIUM SULFATE-D5W PMX 1 GM in DEXTROSE/WATER 1 100ML.BAG IVPB ONE (07:00)
[2024-02-21] MEDS ORDERED: HYDROcodone/APAP 5-325MG 1 EACH TAB PO PRN (07:03)
[2024-02-21] MEDS ORDERED: ESCITALOPRAM 20 MG TAB PO PRN (07:03)
[2024-02-21] MEDS: METOPROLOL TARTRATE 12.5 MG TAB PO STA (07:03)
[2024-02-21] MEDS: FUROSEMIDE 10 MG/ML 4 ML VIAL IV SCH (07:05)
[2024-02-21] MEDS: LORazepam 2 MG/ML INJ IV STA (07:28)
[2024-02-21] MEDS: METOPROLOL TARTRATE 50 MG TAB PO SCH (08:27)
[2024-02-21] MEDS: ATORVASTATIN 40 MG TAB PO SCH (08:27)
--- NOTE | 2024-02-21 11:05 | P.HPIM ---
History of Present Illness H&P Date: 02/21/24 Patient is a 73-year-old male with history of nonischemic cardiomyopathy, hypertension, dyslipidemia, depression, alcohol dependence presenting with fatigue, exertional dyspnea, PND and lower extremity edema. He claims that he has been having shortness of breath for a few months, more progressively worsened over the last few days. He noted that he had more difficulty doing work in the yard and felt extremely fatigued and had difficulty concentrating due to the fatigue. He has also been noticing increased number of awakening at night difficulty breathing, uses 1 pillow, and lies on his side while sleeping. He has noticed some lower extremity edema as well. He normally follows up with cardiology, but last follow-up was over 1 year ago. He denies any fevers, chills, chest pain, palpitations, nausea, vomiting, urinary or bowel complaints. He drinks alcohol daily, after 2 glasses of wine, denies any smoking or illicit drug use. In the ED, temperature was 99, pulse 80, respiratory rate 20, blood pressure 169/112, saturating at 95% on room air. WBC 9.5, hemoglobin 13.7, platelet 146, sodium 134, bicarb 20, creatinine 0.91, magnesium 1.5, troponin negative, proBNP 2200. Chest x-ray independently interpreted, shows increased interstitial opacities. EKG independently interpreted, shows left bundle branch block, otherwise sinus rhythm. Patient being admitted for CHF exacerbation, started on IV Lasix 40 twice daily. Also given magnesium in the ED. Cardiology consulted. Pertinent positives and negatives as discussed in HPI, a complete review of systems was performed and all other systems are negative. Patient seen and examined at bedside. Vital signs reviewed General: nontoxic, no distress, appears at stated age Derm: warm, dry Head: atraumatic, normocephalic, symmetric Eyes: EOMI, no lid lag, anicteric sclera, pupils equal round reactive to light ENT: Nose and ears atraumatic Neck: No thyromegaly, supple Mouth: no lip lesion, mucus membranes moist Cardiovascular: S1S2 reg, no murmur, 1+ lower extremity edema Lungs: clear to auscultation bilateral, no rhonchi, no rales, no wheeze, no accessory muscle use Abdominal: soft, obese, nontender to palpation, no guarding, no appreciable organomegaly Ext: no gross muscle atrophy, muscle strength muscle strength 5 out of 5 in all 4 extremities, no contractures Neuro: CN II-XII grossly intact Psych: Alert, oriented, appropriate affect Assessment/Plan: Active: Acute CHF exacerbation, unknown EF Hypertension History of nonischemic cardiomyopathy, with recovered EF - On IV Lasix 40 twice daily, monitor for electrolytes - Intake and output, daily weights - Also on topical nitroglycerin 1 inch every 6 hours - Continue home metoprolol 50 twice daily, aspirin 81 mg, atorvastatin 40 mg - Echocardiogram pending - Telemetry monitoring, repeat troponin - Cardiology consulted, pending recommendations Hypomagnesemia - Repleted with IV magnesium sulfate in the ED, repeat magnesium level tomorrow Alcohol dependence - Monitor for withdrawal - Thiamine 100 mg daily - Last drink was 3 days ago Chronic: Depression/anxiety The patient is admitted with an anticipated greater than 2 midnight stay as i npatient status for evaluation of CHF exacerbation. Surrogate decision-maker: Spouse CODE STATUS: Full code DVT prophylaxis: Lovenox Anticipated discharge date: Pending clinical course Anticipated discharge place: Pending clinical course A total of 55 minutes was spent on the care of this complex patient more than 50% of the time was spent in counseling and care coordination. Past Medical History Past Medical History: Hypertension, Myocardial Infarction ([place]), Osteoarthritis (OA), Sleep Apnea/CPAP/BIPAP Additional Past Medical History / Comment(s): Cardiomyopathy., Hx blood clot in arm after heart cath., sleep apnea(no c-pap)., [place] (1982,2012).,back pain., bunion right foot. Last Myocardial Infarction Date:: 2012 EST History of Any Multi-Drug Resistant Organisms: None Reported Past Surgical History: Cholecystectomy, Heart Catheterization, Hernia Repair Additional Past Surgical History / Comment(s): heart cath x3., COLONOSCOPY, cataracts., hx back injections. Past Anesthesia/Blood Transfusion Reactions: No Reported Reaction Past Psychological History: Anxiety, Depression Smoking Status: Never smoker Past Alcohol Use History: Daily Past Drug Use History: None Reported - Past Family History Mother Family Medical History: Cancer Additional Family Medical History / Comment(s): . Medications and Allergies Home Medications Medication Instructions Recorded Confirmed Type Rosuvastatin [Crestor] 20 mg PO DAILY 10/21/23 02/21/24 History Allergies Allergy/AdvReac Type Severity Reaction Status Date / Time No Known Allergies Allergy Verified 10/21/23 13:14 Physical Exam Vitals: Vital Signs Temp Pulse Resp BP Pulse Ox 02/21/24 07:25 97.9 F 71 20 154/95 95 02/21/24 06:15 69 19 156/96 95 02/21/24 04:45 99.0 F 80 20 169/112 95 Intake and Output 02/20/24 02/21/24 02/21/24 22:59 06:59 14:59 Other: Weight 85.275 kg Results CBC & Chem 7: 02/21/24 04:53 02/21/24 04:53 Labs: Abnormal Lab Results - Last 24 Hours (Table) 02/21/24 02/21/24 02/21/24 Range/Units 04:46 04:53 04:53 RBC 3.72 L (4.30-5.90) m/uL MCV 109.7 H (80.0-100.0) fL MCH 36.8 H (25.0-35.0) pg Plt Count 146 L (150-450) k/uL Macrocytosis Marked A Sodium 134 L (137-145) mmol/L Carbon Dioxide 20 L (22-30) mmol/L BUN 22 H (9-20) mg/dL Glucose 116 H (74-99) mg/dL POC Glucose (mg/dL) 125 H (70-110) mg/dL Magnesium 1.5 L (1.6-2.3) mg/dL Alkaline Phosphatase 35 L (38-126) U/L
--- NOTE | 2024-02-21 11:20 | P.CRDCN ---
History of Present Illness Consult date: 02/21/24 History of present illness: History of present illness: This is a 73-year-old male follows with Dr. Pineda at [facility] with past medical history of cardiomyopathy and states in his 30s there was discussion about transplant. He has a history of IA x 2 per patient, obstructive sleep apnea without CPAP, hypertension. We have been asked to evaluate the patient f or CHF. Patient complains of dizziness weakness and fatigue. He states he normally does all of the housework at home because his is not able to but he has significant fatigue and unable to perform this. On Monday he did not feel he could drive to work and ended up laying down all day on Monday and Monday and by Monday was not feeling any better. He also complains of shortness of breath. No cough no fever or chills. Patient also gives history of running out of his blood pressure medications 3 days ago but he does not know the name of this. This could have been metoprolol but according to the pharmacy, patient has not had this filled since July. He has been started on IV Lasix 40 mg every 12 hours. Initial blood pressure 169/112. He is status post 1 dose of Lopressor 12.5 mg, magnesium replacement, Ativan and aspirin. Patient is seen today in the emergency center waiting for bed on the cardiac stepdown unit. EKG sinus rhythm with left bundle branch block Chest x-ray: Low lung volumes, mild interstitial edema or pneumonia. WBC 9.5, hemoglobin 13.7, platelet count 146. Sodium 134, potassium 4.8, BUN 22 creatinine 0.9. Magnesium 1.5. Troponin negative x 2. Home cardiac medications: Crestor 20 mg daily unknown when patient last took this. Left heart catheterization done at [facility] in 2017 revealed normal coronary arteries, EF 45%. Review Of Systems: At the time of my exam: CONSTITUTIONAL: Denies fever or chills. Reports fatigue. HEENT: Denies blurred vision, vision changes, or eye pain. Denies hemoptysis CARDIOVASCULAR: Denies chest pain. Denies orthopnea. Denies PND. Denies palpitations RESPIRATORY: Reports shortness of breath. GASTROINTESTINAL: Denies abdominal pain. Denies nausea or vomiting. HEMATOLOGIC: Denies bleeding disorders. GENITOURINARY: Denies any blood in urine. SKIN: Denies pruitis. Denies rash. Physical examination: Gen: This is a 73-year-old male in no acute distress. VS: reviewed blood pressure 134/98, heart rate 66. HEENT: Head is atraumatic, normocephalic. Pupils equal, round. Sclerae is anicteric. NECK: Supple. No JVD. LUNGS: Air entry bilaterally. No intercostal retractions. HEART: Regular rate and rhythm. 2/6 systolic murmur. ABDOMEN: Soft No tenderness. EXTREMITIES: No pedal edema. No calf tenderness. NEUROLOGICAL: Patient is awake, alert and oriented x3. Assessment: Acute systolic heart failure Cardiomyopathy with EF 45% Hypertension Hypomagnesemia status post replacement Alcohol dependence Plan: Resume statin IV Lasix 40 mg every 12 Start patient on Farxiga 10 mg daily Start patient on losartan 25 mg daily Hold on beta-blockers due to dizziness Obtain 2-D echocardiogram and Doppler study to assess cardiac structure and function Plan for event monitor for 30 days at the time of discharge Further recommendations to follow based upon clinical course Thank you kindly for this consultation. Nurse practitioner note has been reviewed, I agree with documented findings and plan of care. Patient was seen and examined. A 73-year-old male follows with Dr. Pineda at [place] Past Medical History Past Medical History: Hypertension, Myocardial Infarction (IA), Osteoarthritis (OA), Sleep Apnea/CPAP/BIPAP Additional Past Medical History / Comment(s): Cardiomyopathy., Hx blood clot in arm after heart cath., sleep apnea(no c-pap)., IA (1982,2012).,back pain., bunion right foot. Last Myocardial Infarction Date:: 2012 EST History of Any Multi-Drug Resistant Organisms: None Reported Past Surgical History: Cholecystectomy, Heart Catheterization, Hernia Repair Additional Past Surgical History / Comment(s): heart cath x3., COLONOSCOPY, cataracts., hx back injections. Past Anesthesia/Blood Transfusion Reactions: No Reported Reaction Past Psychological History: Anxiety, Depression Smoking Status: Never smoker Past Alcohol Use History: Daily Past Drug Use History: None Reported - Past Family History Mother Family Medical History: Cancer Additional Family Medical History / Comment(s): . Medications and Allergies Home Medications Medication Instructions Recorded Confirmed Type Rosuvastatin [Crestor] 20 mg PO DAILY 10/21/23 02/21/24 History Allergies Allergy/AdvReac Type Severity Reaction Status Date / Time No Known Allergies Allergy Verified 10/21/23 13:14 Physical Exam Vitals: Vital Signs Temp Pulse Resp BP Pulse Ox 02/21/24 10:05 97.8 F 79 18 134/98 95 02/21/24 09:05 98.0 F 61 18 141/86 95 02/21/24 07:25 97.9 F 71 20 154/95 95 02/21/24 06:15 69 19 156/96 95 02/21/24 04:45 99.0 F 80 20 169/112 95 Intake and Output 02/20/24 02/21/24 02/21/24 22:59 06:59 14:59 Output Total 1300 Balance -1300 Output: Urine 1300 Other: Weight 85.275 kg Results 02/21/24 04:53 02/21/24 04:53 Cardiac Enzymes 02/21/24 02/21/24 02/21/24 Range/Units 04:53 04:53 07:32 AST 36 (17-59) U/L Troponin I <0.012 <0.012 (0.000-0.034) ng/mL Coagulation 02/21/24 Range/Units 04:53 PT 11.1 (10.0-12.5) sec APTT 23.1 (22.0-30.0) sec CBC 02/21/24 Range/Units 04:53 WBC 9.5 (3.8-10.6) k/uL RBC 3.72 L (4.30-5.90) m/uL Hgb 13.7 (13.0-17.5) gm/dL Hct 40.9 (39.0-53.0) % Plt Count 146 L (150-450) k/uL Comprehensive Metabolic Panel 02/21/24 Range/Units 04:53 Sodium 134 L (137-145) mmol/L Potassium 4.8 (3.5-5.1) mmol/L Chloride 106 (98-107) mmol/L Carbon Dioxide 20 L (22-30) mmol/L BUN 22 H (9-20) mg/dL Creatinine 0.91 (0.66-1.25) mg/dL Glucose 116 H (74-99) mg/dL Calcium 9.5 (8.4-10.2) mg/dL AST 36 (17-59) U/L ALT 25 (4-49) U/L Alkaline Phosphatase 35 L (38-126) U/L Total Protein 7.2 (6.3-8.2) g/dL Albumin 4.0 (3.5-5.0) g/dL Current Medications Generic Name Dose Route Start Last Admin Trade Name Freq PRN Reason Stop Dose Admin Atorvastatin Calcium 40 mg 02/21/24 09:00 02/21/24 08:27 Atorvastatin 40 Mg Tab PO 40 mg DAILY MARIS Administration Furosemide 40 mg 02/21/24 07:00 02/21/24 07:05 Furosemide 10 Mg/Ml 4 Ml Vial IV Not Given Q12H MARIS Nitroglycerin 1 inch 02/21/24 12:00 Nitroglycerin Oint 1 Inch/Gm Packet TOPICAL 02/22/24 12:01 Q6HR MARIS Sodium Chloride 10 ml 02/21/24 09:00 02/21/24 08:29 Sodium Chloride 0.9% Flush 10 Ml Syringe IV 10 ml BID MARIS Administration Intake and Output 02/20/24 02/21/24 02/21/24 22:59 06:59 14:59 Output Total 1300 Balance -1300 Output: Urine 1300 Other: Weight 85.275 kg 02/21/24 04:53 02/21/24 04:53
[2024-02-21] MEDS: NITROGLYCERIN OINT 1 INCH/GM PACKET TOPICAL SCH (11:21)
[2024-02-21] MEDS: DAPAGLIFLOZIN PROPANEDIOL 10 MG TABLET PO SCH (11:21)
[2024-02-21] MEDS: THIAMINE 100 MG TAB PO SCH (11:21)
--- NOTE | 2024-02-21 13:12 | CA ---
Transthoracic Echo Report Name: Adam Belcher Age: 73 Gender: M : 1950 Exam Date: 02/21/2024 07:04 Exam Location: [place] [facility] Ht (in): 67 Wt (lb): 188 Ordering Physician: Yaniv Levine MD Attending/Referring Phys: Journeyman Wireman Tania Goff RDCS Procedure CPT: Indications: Heart failure Cardiac Hx: Cardiomyopathy Technical Quality: Fair Contrast 1: Definity Total Dose (mL): 2 Contrast 2: Total Dose (mL): MEASUREMENTS (Male / Female) Normal Values 2D ECHO LV Diastolic Diameter PLAX 6.3 cm 4.2 - 5.9 / 3.9 - 5.3 cm LV Systolic Diameter PLAX 5.4 cm IVS Diastolic Thickness 0.9 cm 0.6 - 1.0 / 0.6 - 0.9 cm LVPW Diastolic Thickness 0.9 cm 0.6 - 1.0 / 0.6 - 0.9 cm LV Relative Wall Thickness 0.3 RV Internal Dim ED PLAX 2.5 cm LVOT Diameter 2.1 cm LA Systolic Diameter LX 5.1 cm 3.0 - 4.0 / 2.7 - 3.8 cm LV Diastolic Volume MOD BP 99.9 cm??? 67 - 155 / 56 - 104 cm??? LV Systolic Volume MOD BP 66.5 cm??? 22 - 58 / 19 - 49 cm??? LV Ejection Fraction MOD BP 33.4 % >= 55 % LV Cardiac Index MOD BP 1184.5 cm???/min???m??? LV Diastolic Volume MOD 4C 110.6 cm??? LV Systolic Volume MOD 4C 78.7 cm??? LV Ejection Fraction MOD 4C 28.9 % LV Cardiac Index MOD 4C 1132.3 cm???/min???m??? LV Diastolic Length 4C 8.3 cm LV Systolic Length 4C 7.5 cm LV Diastolic Volume MOD 2C 82.2 cm??? LV Systolic Volume MOD 2C 61.0 cm??? LV Ejection Fraction MOD 2C 25.8 % LV Cardiac Index MOD 2C 751.2 cm???/min???m??? LV Diastolic Length 2C 7.5 cm LV Systolic Length 2C 7.3 cm M-MODE Aortic Root Diameter MM 3.3 cm LA Systolic Diameter MM 4.9 cm LA Ao Ratio MM 1.5 DOPPLER AV Peak Velocity 186.9 cm/s AV Peak Gradient 14.0 mmHg LVOT Peak Velocity 0.3 cm/s LVOT Peak Gradient 0.0 mmHg AV Area Cont Eq pk 0.0 cm??? Mitral E Point Velocity 101.7 cm/s Mitral A Point Velocity 77.5 cm/s Mitral E to A Ratio 1.3 MV Deceleration Time 266.5 ms MV E' Velocity 3.3 cm/s Mitral E to MV E' Ratio 30.6 TR Peak Velocity 186.2 cm/s TR Peak Gradient 13.9 mmHg FINDINGS Left Ventricle Left ventricular ejection fraction is estimated at 20-25 %. Mildly increased left ventricular diastolic diameter. Mildly increased left ventricular systolic volume. Severely reduced global left ventricular systolic function. Right Ventricle Normal right ventricular size and function. Right ventricular systolic pressure within normal limits. Right Atrium Moderate right atrial dilatation. Left Atrium Moderately increased left atrial diameter. Mitral Valve Structurally normal mitral valve. Moderate mitral annular calcification. Moderate mitral regurgitation. Aortic Valve Low-flow mild aortic stenosis with a peak gradient of 14 mmHg and a mean gradient of 8 mmHg. No aortic regurgitation. Trileaflet aortic valve. Tricuspid Valve Structurally normal tricuspid valve. Mild tricuspid regurgitation. Pulmonic Valve Structurally normal pulmonic valve. No pulmonic stenosis. No pulmonic regurgitation. Pericardium No pericardial or pleural effusion. Aorta Normal size aortic root and proximal ascending aorta. CONCLUSIONS Reduced LV systolic function ejection fraction less than 25% Calcified aortic valve leaflets with mild gradient in the setting of reduced systolic function However on visual inspection, despite a very reduced LV systolic function, the valve opens reasonably Previewed by: Dr. Rodger Rg MD (Electronically Signed) Final Date: 21 February 2024 13:11
[2024-02-21] MEDS: ACETAMINOPHEN TAB 325 MG TAB PO PRN (16:46)
[2024-02-21] MEDS: ZOLPIDEM 5 MG TAB PO PRN (23:05)
[2024-02-22] MEDS ORDERED: ASPIRIN 81 MG PO SCH (09:00)
[2024-02-22] MEDS ORDERED: ASPIRIN 325 MG TAB PO SCH (09:00)
[2024-02-22 09:27] VITALS: PULSE 80
[2024-02-22 09:37] LABS: African American GFR (CKD) 77 (>60 ml/min/1.73 sqM); Anion Gap 12 mmol/L; Blood Urea Nitrogen 21 mg/dL (9-20); Calcium 9.8 mg/dL (8.4-10.2); Carbon Dioxide 29 mmol/L (22-30); Chloride 95 mmol/L (98-107); Glucose 123 mg/dL (74-99); Magnesium 1.6 mg/dL (1.6-2.3); Non-African American GFR(CKD) 66 (>60 ml/min/1.73 sqM); Potassium 4.3 mmol/L (3.5-5.1); Sodium 136 mmol/L (137-145)
--- NOTE | 2024-02-22 11:05 | P.PN ---
Subjective History of present illness: This is a 73-year-old male follows with Dr. Pineda at [facility] with past medical history of cardiomyopathy and states in his 30s there was discussion about transplant. He has a history of [place] x 2 per patient, obstructive sleep apnea without CPAP, hypertension. We have been asked to evaluate the patient for CHF. Patient complains of dizziness weakness and fatigue. He states he normally does all of the housework at home because his is not able to but he has significant fatigue and unable to perform this. On Monday he did not feel he could drive to work and ended up laying down all day on Monday and Monday and by Monday was not feeling any better. He also complains of shortness of breath. No cough no fever or chills. Patient also gives history of running out of his blood pressure medications 3 days ago but he does not know the name of this. This could have been metoprolol but according to the pharmacy, patient has not had this filled since July. He has been started on IV Lasix 40 mg every 12 hours. Initial blood pressure 169/112. He is status post 1 dose of Lopressor 12.5 mg, magnesium replacement, Ativan and aspirin. Patient is seen today in the emergency center waiting for bed on the cardiac stepdown unit. EKG sinus rhythm with left bundle branch block Chest x-ray: Low lung volumes, mild interstitial edema or pneumonia. WBC 9.5, hemoglobin 13.7, platelet count 146. Sodium 134, potassium 4.8, BUN 22 creatinine 0.9. Magnesium 1.5. Troponin negative x 2. Home cardiac medications: Crestor 20 mg daily unknown when patient last took this. Left heart catheterization done at [facility] in 2016 revealed normal coronary arteries, EF 45%. 02/21 Patient seen and examined. Patient was started on Lasix and losartan added as well as Jardiance. He states he is feeling better and at his baseline. Echocardiogram shows EF 20-25%. He does have prior heart catheterization showing normal coronary arteries and normal troponins did not have any significant angina-type symptoms. Blood work shows creatinine 1.1, potassium 4.3. Physical examination: Gen: This is a 73-year-old male in no acute distress. VS: reviewed blood pressure 134/98, heart rate 66. HEENT: Head is atraumatic, normocephalic. Pupils equal, round. Sclerae is anicteric. NECK: Supple. No JVD. LUNGS: Air entry bilaterally. No intercostal retractions. HEART: Regular rate and rhythm. 2/6 systolic murmur. ABDOMEN: Soft No tenderness. EXTREMITIES: No pedal edema. No calf tenderness. NEUROLOGICAL: Patient is awake, alert and oriented x3. Assessment: Acute systolic heart failure Nonischemic cardiomyopathy with EF 20-25% Hypertension Hypomagnesemia status post replacement Alcohol dependence Plan: patient appears euvolemic. He does have cardiomyopathy and has been noncompliant with some of his medications. We discussed importance of heart failure regimen. We will add losartan, metoprolol and Jardiance going home as well as daily Lasix. Patient with prior normal heart catheterization and prior history of nonischemic cardiomyopathy. patient appears stable for discharge home with outpatient follow-up. Cardiac rehab may be a good option for him as well. Objective - Vital Signs Vital signs: Vital Signs Temp 97.9 F 02/21/24 12:10 Pulse 80 02/22/24 09:04 Resp 18 02/22/24 09:04 BP 132/92 02/22/24 09:04 Pulse Ox 96 02/22/24 09:04 FiO2 Intake & Output 02/21/24 02/22/24 02/22/24 18:59 06:59 18:59 Output Total 3300 Balance -3300 Weight 85.275 kg Output: Urine 3300 - Labs CBC & Chem 7: 02/21/24 04:53 02/22/24 08:11 Labs: Abnormal Lab Results - Last 24 Hours (Table) 02/22/24 Range/Units 08:11 Sodium 136 L (137-145) mmol/L Chloride 95 L (98-107) mmol/L BUN 21 H (9-20) mg/dL Glucose 123 H (74-99) mg/dL
[2024-02-22] MEDS: METOPROLOL SUCCINATE (ER) 25 MG TAB.ER.24H PO SCH (11:28)
[2024-02-22] MEDS: LOSARTAN 25 MG TAB PO SCH (11:28)
--- NOTE | 2024-02-22 12:49 | P.DS ---
Providers Date of admission: 02/21/24 07:03 Expected date of discharge: 02/22/24 Attending physician: Juan C Gandara MD Consults: 02/21/24 06:59 Consult Physician Routine Consulting Provider: Gideon Suarez Consult Reason/Comments: Congestive heart failure Do you want consulting provider notified?: Yes Primary care physician: [facility] Hospital Course: Discharge Diagnosis: Acute systolic CHF exacerbation, EF 25% Nonischemic cardiomyopathy Hypertension Hypomagnesemia Alcohol dependence Hospital Course: 73-year-old male with history of nonischemic cardiomyopathy, hypertension, dyslipidemia, depression, alcohol dependence presenting with fatigue, exertional dyspnea, PND and lower extremity edema. In the ED, temperature was 99, pulse 80, respiratory rate 20, blood pressure 169/112, saturating at 95% on room air. WBC 9.5, hemoglobin 13.7, platelet 146, sodium 134, bicarb 20, creatinine 0.91, magnesium 1.5, troponin negative, proBNP 2200. Chest x-ray independently interpreted, shows increased interstitial opacities. EKG independently interpreted, shows left bundle branch block, otherwise sinus rhythm. Patient being admitted for CHF exacerbation, started on IV Lasix 40 twice daily. Also given magnesium in the ED. Cardiology consulted. Echocardiogram shows LVEF 20 to 25%. Per cardiology likely nonischemic given history of nonischemic systolic cardiomyopathy. Patient also drinks alcohol daily. Will need further workup outpatient. In the past he has had normal coronary arteries. Started on heart failure medications. Patient seen and examined at bedside. Vital signs reviewed and stable. General: Nontoxic, no distress, appears at stated age Derm: Warm, dry Head: Atraumatic, normocephalic, symmetric Eyes: EOMI, no lid lag, anicteric sclera Mouth: No lip lesion, mucus membranes moist Cardiovascular: S1S2 reg, no murmur Lungs: CTA bilateral, no rhonchi, no rales, no accessory muscle use Abdominal: Soft, nontender to palpation, no guarding, no appreciable organomegaly Ext: No gross muscle atrophy, no edema, no contractures Neuro: CN II-XI grossly intact, no focal neuro deficits Psych: Alert, oriented, appropriate affect A total of 33 minutes of time were spent preparing this complex discharge summary. Patient was discharged on 02/22/2024 at 1246. Patient Condition at Discharge: Stable Plan - Discharge Summary Discharge Rx Participant: No New Discharge Prescriptions: New Losartan [Cozaar] 25 mg PO DAILY #60 tab Furosemide [Lasix] 40 mg PO DAILY #60 tab Thiamine [Vitamin B-1] 100 mg PO DAILY #60 tab Dapagliflozin Propanediol [Farxiga] 10 mg PO DAILY #60 tab Metoprolol Succinate (ER) [Toprol XL] 12.5 mg PO DAILY #60 tab Continue Rosuvastatin [Crestor] 20 mg PO DAILY Discharge Medication List Rosuvastatin [Crestor] 20 mg PO DAILY 10/21/23 [History] Dapagliflozin Propanediol [Farxiga] 10 mg PO DAILY #60 tab 02/22/24 [Rx] Furosemide [Lasix] 40 mg PO DAILY #60 tab 02/22/24 [Rx] Losartan [Cozaar] 25 mg PO DAILY #60 tab 02/22/24 [Rx] Metoprolol Succinate (ER) [Toprol XL] 12.5 mg PO DAILY #60 tab 02/22/24 [Rx] Thiamine [Vitamin B-1] 100 mg PO DAILY #60 tab 02/22/24 [Rx] Follow up Appointment(s)/Referral(s): Harvinder Pineda MD [Primary Care Provider] - 1-2 days Lobo Mcfadden DO [STAFF PHYSICIAN] - 1 Week Patient Instructions/Handouts: Heart Failure (DC) Activity/Diet/Wound Care/Special Instructions: Please see your PCP and earth mover. Discharge Disposition: HOME SELF-CARE
[2024-02-22 15:29] VITALS: BP 141/94; RESP 20; TEMP 97.8
[2024-02-23] MEDS ORDERED: FUROSEMIDE 40 MG TAB PO SCH (09:00)
--- NOTE | 2024-02-27 12:36 | CE ---
EVENT MONITOR STUDY: 30-day event monitor. FINDINGS: The patient was monitored for 19 days only. The patient is supposed to have the monitor for 30 days. The baseline rhythm appeared to be sinus mechanism likely with extensive baseline artifact noted. PVC was noted with frequency at 11%. PAC noted as well with a frequency around 9% noted. No significant sinus pause or sinus arrest identified. Two events noted with two patient-triggered and event associated with normal sinus mechanism. CONCLUSION: 1. The patient wore the monitor for only 19 days instead of 30 days. 2. Extensive baseline artifact noted. 3. The baseline rhythm is likely to be sinus mechanism. 4. Frequent PVCs noted at 11%. 5. Frequent PACs noted 9%. 6. Five events were transmitted with 2 of them triggered by the patient and the event associated with normal sinus mechanism. 7. No significant sinus pause or sinus arrest seen. VIANEY / NORM: [id number] / MTDD
== END 2024-02-22 14:48 | disposition home or self-care (01) | DRG 291 ==
LOC: EC 04:44 → 3SCARD 07:03
PROVIDERS: ADMIT Internal Medicine; ATTEND Internal Medicine
DX: I11.0 Hypertensive heart disease with heart failure (principal); I50.23 Acute on chronic systolic (congestive) heart failure; I42.8 Other cardiomyopathies; F10.20 Alcohol dependence, uncomplicated; F32.A Depression, unspecified; Z28.311 Partially vaccinated for COVID-19; E78.5 Hyperlipidemia, unspecified; E83.42 Hypomagnesemia; F41.9 Anxiety disorder, unspecified; I25.2 Old myocardial infarction; I44.7 Left bundle-branch block, unspecified; G47.33 Obstructive sleep apnea (adult) (pediatric); M19.90 Unspecified osteoarthritis, unspecified site; M54.9 Dorsalgia, unspecified; R26.2 Difficulty in walking, not elsewhere classified; Z79.899 Other long term (current) drug therapy; Z86.718 Personal history of other venous thrombosis and embolism
CPT/HCPCS: 36415; 71046; 80048; 80053; 83735; 83880; 84484; 85025; 85610; 85730; 93005; 93270; 93306; 96365; 96375; 96376; 99285

== ENCOUNTER → 2025-02-24 | Outpatient (CLI) | payer OTHER ==
--- NOTE | 2025-02-24 14:51 | XR ---
EXAMINATION TYPE: XR lumbar spine 2 or 3V DATE OF EXAM: 02/24/2025 2:47 PM COMPARISON: None. CLINICAL INDICATION: Male, 74 years old with history of S39.012A STRAIN OF MUSCLE, FASCIA AND TENDON OF LO, TECHNIQUE: 3 views of the lumbar spine submitted. FINDINGS: Severe degenerative narrowing at L5-S1 with grade 1 anterolisthesis measuring 6 mm of L5 on S1. Severe facet joint arthropathy. Mild scattered ventral spondylosis. IMPRESSION: Degenerative disc disease with grade 1 anterolisthesis L5 on S1 and severe facet joint ar thropathy. [facility], , 02/24/2025 2:49 PM
== END | disposition home or self-care (01) ==
LOC: RADXRMAIN 14:32
PROVIDERS: ATTEND Emergency Medicine
DX: S39.012A Strain of muscle, fascia and tendon of lower back, initial encounter (principal); M43.17 Spondylolisthesis, lumbosacral region; M51.379 Other intervertebral disc degeneration, lumbosacral region without mention of lumbar back pain or lower extremity pain; M47.817 Spondylosis without myelopathy or radiculopathy, lumbosacral region; X58.XXXA Exposure to other specified factors, initial encounter
CPT/HCPCS: 72100